=== PATIENT | male | born 1960 | race Two or more races ===

== ENCOUNTER 2019-12-24 18:43 | Outpatient (REF) | payer OTHER, SELFPAY ==
--- NOTE | 2019-12-24 | MR_ITS ---
EXAMINATION: MRI SHOULDER WITHOUT CONTRAST, LEFT CLINICAL INFORMATION: Left shoulder pain, unspecified chronicity. Patient reports left-sided arm weakness, pulling sensation posterior to shoulder, with symptoms for 8 months and no recent injury. COMPARISON: None. TECHNIQUE: MRI scanning is performed using a standard protocol on a high-field strength 1.5 Brooke magnet. FINDINGS: ROTATOR CUFF: There is mild distal supraspinatus, infraspinatus, and subscapularis tendinosis. The teres minor tendon is intact. There is trace edema/fluid in the subacromial-subdeltoid bursa. No muscle atrophy or fatty infiltration. BICEPS: Normal. CORACOACROMIAL ARCH: The undersurface of the acromion is curved with a small lateral subacromial spur. There is mild osteoarthritis of the acromioclavicular joint. LABRUM/CAPSULE: There is a diffuse longitudinal tear extending through the substance of the superior labrum. This may extend diffusely through the posterior labrum but is not as well-defined. There is irregularity of the anterior labrum which may be degenerative. A subtle superimposed tear is not excluded. The capsular structures are unremarkable. GLENOHUMERAL JOINT/MARROW: There are patchy areas of mild cartilage thinning in the glenohumeral joint. IMPRESSION: 1. Mild rotator cuff tendinosis. No evidence of tear. 2. Minor subacromial-subdeltoid bursitis. 3. Small lateral subacromial spur and mild osteoarthritis of the acromioclavicular joint. 4. Diffuse superior labral tear with possible extension through the posterior labrum. Anterior labral degeneration; a superimposed tear is not excluded. 5. Mild glenohumeral arthrosis.
== END 2019-12-24 18:44 | disposition home or self-care (01) ==
LOC: HO.MRI 18:43
PROVIDERS: PCP Internal Medicine; Visit Provider Internal Medicine
DX: M25.512 Pain in left shoulder (principal)
CPT/HCPCS: 73221

== ENCOUNTER 2020-03-02 10:25 | Outpatient (REF) | payer OTHER, SELFPAY ==
--- NOTE | 2020-03-02 10:29 | XR_ITS ---
EXAMINATION: XR SHOULDER, LEFT CLINICAL INFORMATION: Pain COMPARISON: Previous MRI December 2019 TECHNIQUE: Three views of the left shoulder. FINDINGS: Bone alignment is normal. No fracture or dislocation is seen. The joint spaces are normal. Soft tissues are normal. XR/XR shoulder LT min 2V IMPRESSION: Unremarkable exam.
== END 2020-03-02 10:26 | disposition home or self-care (01) ==
LOC: HO.HOSX 10:25
PROVIDERS: PCP Internal Medicine; Visit Provider Orthopaedic Surgery
DX: M75.42 Impingement syndrome of left shoulder (principal)
CPT/HCPCS: 20610; 73030; J1040

== ENCOUNTER 2020-03-10 06:51 | Outpatient (REF) | payer OTHER, SELFPAY ==
[2020-03-10 07:20] LABS: Basophils Absolute Auto 0.1 X10*3/uL (0.0-0.2); Basophils Percent Auto 0.5 % (0-2); Eosinophils Percent Auto 0.1 % (0-4); Hematocrit 44.9 % (42-52); Hemoglobin 15.1 g/dl (14.0-18.0); Imm Gran Abs Auto 0.05 X10*3/uL (0.00-0.03); Imm Gran Pct Auto 0.4 % (0.0-0.4); Lymphocytes Absolute Auto 1.9 X10*3/uL (1.2-4.9); Lymphocytes Percent Auto 14.7 % (20-40); MANUAL DIFF FLAG NO; Mean Corpuscular HGB Conc 33.6 g/dl (31.0-36.0); Mean Corpuscular Hemoglobin 31.7 pg (27.0-33.0); Mean Corpuscular Volume 94.1 fL (80-98); Mean Platelet Volume 8.7 fL (9.4-12.4); Monocytes Absolute Auto 1.1 X10*3/uL (0.1-1.2); Monocytes Percent Auto 8.7 % (2-11); Neutrophils Absolute Auto 9.7 X10*3/uL (2.0-8.3); Neutrophils Percent Auto 75.6 % (45-73); Platelet Count 471 X10*3/uL (160-400); Red Blood Count 4.77 X10*6/uL (4.60-5.80); Red Cell Distribution Width 13.1 % (11.0-16.0); White Blood Count 12.8 X10*3/uL (4.8-10.8)
[2020-03-10 07:34] LABS: Estimated Average Glucose 114 mg/dL; Hemoglobin A1c % 5.6 %
[2020-03-10 07:51] LABS: Alanine Aminotransferase 32 U/L (0-40); Albumin Level 4.5 g/dL (3.5-5.0); Alkaline Phosphatase 84 U/L (39-117); Anion Gap 15 (12-20); Aspartate Amino Transferase 24 U/L (5-37); Bilirubin Total 0.5 mg/dL (0.0-1.0); Blood Urea Nitrogen 19 mg/dL (9-16); Calcium 9.1 mg/dL (8.4-10.2); Carbon Dioxide 22 mmol/L (22-29); Chloride 105 mmol/L (96-108); Cholesterol 178 mg/dL; Estimated Glomerular Filt Rate > 60; Glucose Fasting 101 mg/dL (60-99); HDL Cholesterol 34 mg/dL; LDL Cholesterol Calculated 123 mg/dl; Potassium 4.5 mmol/l (3.3-5.1); Sodium 137 mmol/L (135-145); Total Protein 7.1 g/dL (6.5-8.0); Triglycerides 109 mg/dL
[2020-03-10 08:13] LABS: TSH reflex Free T4 1.91 mIU/mL (0.32-4.0); Vitamin D 25-OH Total 36.9 ng/mL (>30)
== END 2020-03-10 06:52 | disposition home or self-care (01) ==
LOC: HO.LAB 06:51
PROVIDERS: PCP Internal Medicine; Visit Provider Internal Medicine
DX: E78.5 Hyperlipidemia, unspecified (principal); R73.01 Impaired fasting glucose; R79.89 Other specified abnormal findings of blood chemistry; K21.9 Gastro-esophageal reflux disease without esophagitis; J30.9 Allergic rhinitis, unspecified; F17.200 Nicotine dependence, unspecified, uncomplicated; E55.9 Vitamin D deficiency, unspecified; E66.3 Overweight
CPT/HCPCS: 36415; 80053; 80061; 82306; 83036; 84443; 85025

== ENCOUNTER 2020-03-30 08:47 | Outpatient (REF) | payer OTHER, SELFPAY ==
--- NOTE | 2020-03-30 08:49 | CT_ITS ---
EXAMINATION: CT CHEST SCREENING CLINICAL INFORMATION: Nicotine dependence. COMPARISON: CT chest 03/17/2019 TECHNIQUE: Multidetector volumetric CT imaging of the chest is performed without contrast using low-dose technique. Additional 2-D coronal and sagittal reformatted images and axial 3-D maximum intensity projection (MIP) images are generated on the CT workstation. This CT examination was performed using dose optimization techniques as appropriate, variously including the following: *Automated exposure control *Adjustment of mA and/or kV according to patient size (this includes techniques or standardized protocols for targeted exams where dose is matched to indication/reason for exam; i.e. extremities or head) *Use of iterative reconstruction technique DLP: 54 mGy-cm FINDINGS: LUNGS: The lungs are well expanded and clear of acute pneumonic process. There are a few scattered pulmonary nodules. A 3 mm nodule left lower lobe axial image 42/4, 1 mm nodule left lower lobe at the same level image 42/4, 1 mm calcified nodule right lower lobe axial image 42/4, 1 mm calcified nodule left lower lobe axial image 43/4. MEDIASTINUM: The thyroid lobes are symmetric and normal. The central trachea and the bronchi are widely patent. The heart size and the great vessels are normal caliber. No abnormal sized mediastinal or hilar lymph nodes seen. There is no pericardial effusion. Punctate coronary artery calcifications are seen. PLEURA: There is no pleural effusion, thickening or calcification. AXILLA: Shotty lymph nodes are seen in the axilla. UPPER ABDOMEN: The visualized liver, spleen, pancreas, and bilateral adrenal glands are unremarkable. There are no radiopaque gallstones seen. OSSEOUS STRUCTURES: No lytic or sclerotic process seen. CT/CT lung screening IMPRESSION: Small 3 mm and less pulmonary nodules. There are 1 mm calcified nodules in both lower lobes. ASSESSMENT: Lung-RADS category 2: Benign. RECOMMENDATION: Low-dose annual CT chest.
== END 2020-03-30 08:48 | disposition home or self-care (01) ==
LOC: HO.CT 08:47
PROVIDERS: PCP Internal Medicine; Visit Provider Physician Assistant Medical
DX: Z87.891 Personal history of nicotine dependence (principal); G47.33 Obstructive sleep apnea (adult) (pediatric); E55.9 Vitamin D deficiency, unspecified
CPT/HCPCS: 71271

== ENCOUNTER 2020-05-18 06:56 | Outpatient (REF) | payer OTHER, SELFPAY ==
[2020-05-18 07:21] LABS: MANUAL DIFF FLAG NO
[2020-05-18 07:27] LABS: Basophils Absolute Auto 0.1 X10*3/uL (0.0-0.2); Eosinophils Percent Auto 0.2 % (0-4); Hematocrit 43.8 % (42-52); Hemoglobin 14.4 g/dl (14.0-18.0); Imm Gran Abs Auto 0.03 X10*3/uL (0.00-0.03); Imm Gran Pct Auto 0.3 % (0.0-0.4); Lymphocytes Percent Auto 26.5 % (20-40); Mean Corpuscular HGB Conc 32.9 g/dl (31.0-36.0); Mean Corpuscular Hemoglobin 31.5 pg (27.0-33.0); Mean Corpuscular Volume 95.8 fL (80-98); Mean Platelet Volume 8.9 fL (9.4-12.4); Monocytes Absolute Auto 0.8 X10*3/uL (0.1-1.2); Neutrophils Absolute Auto 7.4 X10*3/uL (2.0-8.3); Platelet Count 442 X10*3/uL (160-400); Red Blood Count 4.57 X10*6/uL (4.60-5.80); Red Cell Distribution Width 13.6 % (11.0-16.0); White Blood Count 11.3 X10*3/uL (4.8-10.8)
[2020-05-18 07:57] LABS: Alanine Aminotransferase 25 U/L (0-40); Albumin Level 4.7 g/dL (3.5-5.0); Alkaline Phosphatase 75 U/L (39-117); Anion Gap 14 (12-20); Aspartate Amino Transferase 22 U/L (5-37); Bilirubin Total 0.6 mg/dL (0.0-1.0); Blood Urea Nitrogen 19 mg/dL (9-16); Calcium 9.5 mg/dL (8.4-10.2); Carbon Dioxide 23 mmol/L (22-29); Chloride 107 mmol/L (96-108); Cholesterol 184 mg/dL; Estimated Glomerular Filt Rate > 60; Glucose Fasting 107 mg/dL (60-99); HDL Cholesterol 29 mg/dL; LDL Cholesterol Calculated 124 mg/dl; Potassium 4.7 mmol/L (3.3-5.1); Sodium 139 mmol/L (135-145); Total Protein 7.2 g/dL (6.5-8.0); Triglycerides 155 mg/dL
[2020-05-18 08:01] LABS: Glucose Urine UA NEG (NEG); Leukocyte Esterase Urine NEG (NEG); Nitrite Urine NEG (NEG); Urine Blood NEG (NEG); Urine Ketones NEG (NEG); Urine Protein NEG (NEG-TRACE)
[2020-05-18 08:03] LABS: Appearance Urine CLEAR; Color Urine YELLOW
[2020-05-18 08:11] LABS: TSH reflex Free T4 2.07 uIU/mL (0.32-4.0); Vitamin D 25-OH Total 33.1 ng/mL (>30)
== END 2020-05-18 06:57 | disposition home or self-care (01) ==
LOC: HO.LAB 06:56
PROVIDERS: PCP Internal Medicine; Visit Provider Internal Medicine
DX: E78.2 Mixed hyperlipidemia (principal); R73.01 Impaired fasting glucose; R79.89 Other specified abnormal findings of blood chemistry; E66.3 Overweight; M51.36 Other intervertebral disc degeneration, lumbar region; E55.9 Vitamin D deficiency, unspecified; F17.200 Nicotine dependence, unspecified, uncomplicated; K21.9 Gastro-esophageal reflux disease without esophagitis
CPT/HCPCS: 36415; 80053; 80061; 81003; 82306; 84443; 85025

== ENCOUNTER 2020-08-23 05:58 | Outpatient (REF) | payer OTHER, SELFPAY ==
[2020-08-23 07:48] LABS: MANUAL DIFF FLAG NO
[2020-08-23 07:56] LABS: Basophils Absolute Auto 0.1 X10*3/uL (0.0-0.2); Basophils Percent Auto 0.9 % (0-2); Eosinophils Absolute Auto 0.5 X10*3/uL (0.0-0.4); Eosinophils Percent Auto 5.2 % (0-4); Hematocrit 43.9 % (42-52); Hemoglobin 14.1 g/dl (14.0-18.0); Imm Gran Abs Auto 0.03 X10*3/uL (0.00-0.03); Imm Gran Pct Auto 0.3 % (0.0-0.4); Lymphocytes Absolute Auto 3.3 X10*3/uL (1.2-4.9); Lymphocytes Percent Auto 32.6 % (20-40); Mean Corpuscular HGB Conc 32.1 g/dl (31.0-36.0); Mean Corpuscular Hemoglobin 30.6 pg (27.0-33.0); Mean Corpuscular Volume 95.2 fL (80-98); Mean Platelet Volume 9.4 fL (9.4-12.4); Monocytes Absolute Auto 0.9 X10*3/uL (0.1-1.2); Monocytes Percent Auto 9.2 % (2-11); Neutrophils Absolute Auto 5.2 X10*3/uL (2.0-8.3); Neutrophils Percent Auto 51.8 % (45-73); Platelet Count 453 X10*3/uL (160-400); Red Blood Count 4.61 X10*6/uL (4.60-5.80); Red Cell Distribution Width 13.7 % (11.0-16.0)
[2020-08-23 08:01] LABS: Estimated Average Glucose 117 mg/dL; Hemoglobin A1c % 5.7 %
[2020-08-23 08:19] LABS: Alanine Aminotransferase 24 U/L (0-40); Albumin Level 4.7 g/dL (3.5-5.0); Alkaline Phosphatase 78 U/L (39-117); Anion Gap 16 (12-20); Aspartate Amino Transferase 22 U/L (5-37); Bilirubin Total 0.5 mg/dL (0.0-1.0); Blood Urea Nitrogen 19 mg/dL (9-16); Calcium 9.3 mg/dL (8.4-10.2); Carbon Dioxide 21 mmol/L (22-29); Chloride 109 mmol/L (96-108); Cholesterol 170 mg/dL; Estimated Glomerular Filt Rate > 60; Glucose Fasting 112 mg/dL (60-99); HDL Cholesterol 32 mg/dL; LDL Cholesterol Calculated 114 mg/dl; Sodium 141 mmol/L (135-145); Total Protein 7.2 g/dL (6.5-8.0); Triglycerides 124 mg/dL
[2020-08-23 08:40] LABS: TSH reflex Free T4 1.81 uIU/mL (0.32-4.0); Vitamin D 25-OH Total 37.4 ng/mL (>30)
[2020-08-23 10:17] LABS: Glucose Urine UA NEG (NEG); Leukocyte Esterase Urine NEG (NEG); Nitrite Urine NEG (NEG); Specific Gravity - Urine 1.015 (1.005-1.025); Urine Blood NEG (NEG); Urine Ketones NEG (NEG); Urine Protein NEG (NEG-TRACE)
[2020-08-23 10:28] LABS: Appearance Urine CLEAR; Color Urine YELLOW
== END 2020-08-23 05:59 | disposition home or self-care (01) ==
LOC: HO.LAB 05:58
PROVIDERS: PCP Internal Medicine; Visit Provider Internal Medicine
DX: R73.01 Impaired fasting glucose (principal); E78.2 Mixed hyperlipidemia; R79.89 Other specified abnormal findings of blood chemistry; M51.36 Other intervertebral disc degeneration, lumbar region; F17.200 Nicotine dependence, unspecified, uncomplicated; I10 Essential (primary) hypertension; J30.9 Allergic rhinitis, unspecified; K21.9 Gastro-esophageal reflux disease without esophagitis; E66.3 Overweight; E55.9 Vitamin D deficiency, unspecified
CPT/HCPCS: 36415; 80053; 80061; 81003; 82306; 83036; 84443; 85025

== ENCOUNTER 2020-11-26 06:34 | Outpatient (REF) | payer OTHER, SELFPAY ==
[2020-11-26 07:35] LABS: MANUAL DIFF FLAG NO
[2020-11-26 07:39] LABS: Basophils Absolute Auto 0.1 X10*3/uL (0.0-0.2); Basophils Percent Auto 0.9 % (0-2); Eosinophils Percent Auto 0.1 % (0-4); Hematocrit 43.2 % (42-52); Hemoglobin 14.6 g/dl (14.0-18.0); Imm Gran Abs Auto 0.03 X10*3/uL (0.00-0.03); Imm Gran Pct Auto 0.3 % (0.0-0.4); Lymphocytes Percent Auto 29.4 % (20-40); Mean Corpuscular HGB Conc 33.8 g/dl (31.0-36.0); Mean Corpuscular Hemoglobin 31.7 pg (27.0-33.0); Mean Corpuscular Volume 93.7 fL (80-98); Monocytes Percent Auto 10.2 % (2-11); Neutrophils Absolute Auto 5.9 X10*3/uL (2.0-8.3); Neutrophils Percent Auto 59.1 % (45-73); Platelet Count 438 X10*3/uL (160-400); Red Blood Count 4.61 X10*6/uL (4.60-5.80); Red Cell Distribution Width 13.3 % (11.0-16.0)
[2020-11-26 08:07] LABS: Alanine Aminotransferase 22 U/L (0-40); Albumin Level 4.7 g/dL (3.5-5.0); Alkaline Phosphatase 73 U/L (39-117); Anion Gap 15 (12-20); Aspartate Amino Transferase 19 U/L (5-37); Bilirubin Total 0.7 mg/dL (0.0-1.0); Blood Urea Nitrogen 20 mg/dL (9-16); Calcium 9.6 mg/dL (8.4-10.2); Carbon Dioxide 22 mmol/L (22-29); Chloride 107 mmol/L (96-108); Cholesterol 177 mg/dL; Estimated Glomerular Filt Rate > 60; Glucose Fasting 103 mg/dL (60-99); HDL Cholesterol 32 mg/dL; LDL Cholesterol Calculated 121 mg/dl; Potassium 4.7 mmol/L (3.3-5.1); Sodium 139 mmol/L (135-145); Total Protein 6.9 g/dL (6.5-8.0); Triglycerides 122 mg/dL
[2020-11-26 08:14] LABS: Estimated Average Glucose 114 mg/dL; Hemoglobin A1c % 5.6 %
[2020-11-26 08:28] LABS: TSH reflex Free T4 2.21 uIU/mL (0.32-4.0); Vitamin D 25-OH Total 27.2 ng/mL (>30)
[2020-11-26 08:44] LABS: Appearance Urine CLEAR; Color Urine YELLOW; Glucose Urine UA NEG (NEG); Leukocyte Esterase Urine NEG (NEG); Nitrite Urine NEG (NEG); PH 5.5 (5.0-8.0); Urine Blood NEG (NEG); Urine Ketones NEG (NEG); Urine Protein NEG (NEG-TRACE)
== END 2020-11-26 06:35 | disposition home or self-care (01) ==
LOC: HO.LAB 06:34
PROVIDERS: PCP Internal Medicine; Visit Provider Internal Medicine
DX: E55.9 Vitamin D deficiency, unspecified (principal); I10 Essential (primary) hypertension; E78.00 Pure hypercholesterolemia, unspecified; E66.3 Overweight; E78.2 Mixed hyperlipidemia; R73.01 Impaired fasting glucose; R79.89 Other specified abnormal findings of blood chemistry
CPT/HCPCS: 36415; 80053; 80061; 81003; 82306; 83036; 84443; 85025

== ENCOUNTER 2021-02-22 06:28 | Outpatient (REF) | payer OTHER, SELFPAY ==
[2021-02-22 06:37] LABS: MANUAL DIFF FLAG NO
[2021-02-22 07:22] LABS: Basophils Absolute Auto 0.1 X10*3/uL (0.0-0.2); Basophils Percent Auto 0.8 % (0-2); Eosinophils Percent Auto 0.2 % (0-4); Hematocrit 45.5 % (42.0-52.0); Hemoglobin 14.8 g/dl (14.0-18.0); Imm Gran Abs Auto 0.03 X10*3/uL (0.00-0.03); Imm Gran Pct Auto 0.3 % (0.0-0.4); Lymphocytes Absolute Auto 3.5 X10*3/uL (1.2-4.9); Mean Corpuscular HGB Conc 32.5 g/dl (31.0-36.0); Mean Corpuscular Hemoglobin 30.6 pg (27.0-33.0); Mean Platelet Volume 9.2 fL (9.4-12.4); Monocytes Percent Auto 8.7 % (2-11); Neutrophils Absolute Auto 6.3 x10*3/uL (2.0-8.3); Platelet Count 451 X10*3/uL (160-400); Red Blood Count 4.84 X10*6/uL (4.60-5.80); Red Cell Distribution Width 12.8 % (11.0-16.0); White Blood Count 10.9 X10*3/uL (4.8-10.8)
[2021-02-22 07:29] LABS: Estimated Average Glucose 114 mg/dL; Hemoglobin A1c % 5.6 %
[2021-02-22 07:49] LABS: Alanine Aminotransferase 21 U/L (0-40); Albumin Level 4.7 g/dL (3.5-5.0); Alkaline Phosphatase 75 U/L (39-117); Anion Gap 13 (12-20); Aspartate Amino Transferase 19 U/L (5-37); Bilirubin Total 0.4 mg/dL (0.0-1.0); Blood Urea Nitrogen 20 mg/dL (9-16); Calcium 10.1 mg/dL (8.4-10.2); Carbon Dioxide 25 mmol/L (22-29); Chloride 107 mmol/L (96-108); Cholesterol 198 mg/dL; Estimated Glomerular Filt Rate > 60; Glucose Fasting 91 mg/dL (60-99); HDL Cholesterol 32 mg/dL; LDL Cholesterol Calculated 145 mg/dl; Potassium 4.8 mmol/L (3.3-5.1); Sodium 140 mmol/L (135-145); Total Protein 7.4 g/dL (6.5-8.0); Triglycerides 107 mg/dL
[2021-02-22 08:14] LABS: Vitamin D 25-OH Total 33.6 ng/mL (>30)
== END 2021-02-22 06:29 | disposition home or self-care (01) ==
LOC: HO.LAB 06:28
PROVIDERS: PCP Internal Medicine; Visit Provider Internal Medicine
DX: R73.01 Impaired fasting glucose (principal); E78.00 Pure hypercholesterolemia, unspecified; E55.9 Vitamin D deficiency, unspecified; I10 Essential (primary) hypertension
CPT/HCPCS: 36415; 80053; 80061; 82306; 83036; 84443; 85025

== ENCOUNTER 2021-05-31 06:14 | Outpatient (REF) | payer OTHER, SELFPAY ==
[2021-05-31 07:43] LABS: Appearance Urine CLEAR; Color Urine YELLOW; Glucose Urine UA NEG (NEG); Leukocyte Esterase Urine NEG (NEG); Nitrite Urine NEG (NEG); Specific Gravity - Urine <= 1.005 (1.005-1.025); Urine Blood NEG (NEG); Urine Ketones NEG (NEG); Urine Protein NEG (NEG-TRACE)
[2021-05-31 08:07] LABS: Alanine Aminotransferase 27 U/L (0-40); Albumin Level 4.5 g/dL (3.5-5.0); Alkaline Phosphatase 84 U/L (39-117); Anion Gap 14 (12-20); Aspartate Amino Transferase 19 U/L (5-37); Bilirubin Total 0.6 mg/dL (0.0-1.0); Blood Urea Nitrogen 18 mg/dL (9-16); Calcium 9.5 mg/dL (8.4-10.2); Carbon Dioxide 25 mmol/L (22-29); Chloride 104 mmol/L (96-108); Cholesterol 166 mg/dL; Estimated Glomerular Filt Rate > 60; Glucose Fasting 113 mg/dL (60-99); HDL Cholesterol 28 mg/dL; Potassium 4.7 mmol/L (3.3-5.1); Sodium 138 mmol/L (135-145); Total Protein 6.9 g/dL (6.5-8.0)
[2021-05-31 08:12] LABS: LDL Cholesterol Calculated 101 mg/dl; Triglycerides 185 mg/dL
[2021-05-31 08:15] LABS: Erythrocyte Sedimentation Rate 7 MM/HR (0-15)
[2021-05-31 08:32] LABS: TSH reflex Free T4 2.87 uIU/mL (0.32-4.0)
[2021-06-02 14:26] LABS: Vitamin D 25-OH Total 35.8 ng/mL (>30)
== END 2021-05-31 06:15 | disposition home or self-care (01) ==
LOC: HO.LAB 06:14
PROVIDERS: PCP Internal Medicine; Visit Provider Internal Medicine
DX: M51.36 Other intervertebral disc degeneration, lumbar region (principal); R73.01 Impaired fasting glucose; E78.00 Pure hypercholesterolemia, unspecified; E55.9 Vitamin D deficiency, unspecified
CPT/HCPCS: 36415; 80053; 80061; 81003; 82306; 84443; 85652

== ENCOUNTER → 2021-06-28 11:01 | Outpatient (BNVA) | payer SELFPAY | PROVIDERS: PCP Internal Medicine; Visit Provider Internal Medicine | DX: Z02.1 Encounter for pre-employment examination (principal) ==

== ENCOUNTER 2021-08-17 06:29 | Outpatient (REF) | payer OTHER, SELFPAY ==
[2021-08-17 06:43] LABS: MANUAL DIFF FLAG NO
[2021-08-17 07:29] LABS: Basophils Absolute Auto 0.1 X10*3/uL (0.0-0.2); Basophils Percent Auto 0.8 % (0-2); Eosinophils Percent Auto 0.1 % (0-4); Hematocrit 44.3 % (42.0-52.0); Hemoglobin 14.7 g/dl (14.0-18.0); Imm Gran Abs Auto 0.02 X10*3/uL (0.00-0.03); Imm Gran Pct Auto 0.2 % (0.0-0.4); Lymphocytes Absolute Auto 2.9 X10*3/uL (1.2-4.9); Lymphocytes Percent Auto 27.1 % (20-40); Mean Corpuscular HGB Conc 33.2 g/dl (31.0-36.0); Mean Corpuscular Hemoglobin 31.5 pg (27.0-33.0); Mean Corpuscular Volume 94.9 fL (80.0-98.0); Mean Platelet Volume 9.2 fL (9.4-12.4); Monocytes Absolute Auto 0.9 X10*3/uL (0.1-1.2); Monocytes Percent Auto 8.2 % (2-11); Neutrophils Absolute Auto 6.8 x10*3/uL (2.0-8.3); Neutrophils Percent Auto 63.6 % (45-73); Platelet Count 391 X10*3/uL (160-400); Red Blood Count 4.67 X10*6/uL (4.60-5.80); Red Cell Distribution Width 12.8 % (11.0-16.0); White Blood Count 10.7 X10*3/uL (4.8-10.8)
[2021-08-17 07:57] LABS: Estimated Average Glucose 108 mg/dL; Hemoglobin A1c % 5.4 %
[2021-08-17 08:02] LABS: Alanine Aminotransferase 23 U/L (0-40); Albumin Level 4.5 g/dL (3.5-5.0); Alkaline Phosphatase 90 U/L (39-117); Anion Gap 13 (12-20); Aspartate Amino Transferase 17 U/L (5-37); Bilirubin Total 0.7 mg/dL (0.0-1.0); Blood Urea Nitrogen 15 mg/dL (9-16); Calcium 9.3 mg/dL (8.4-10.2); Carbon Dioxide 25 mmol/L (22-29); Chloride 106 mmol/L (96-108); Cholesterol 165 mg/dL; Estimated Glomerular Filt Rate > 60; Glucose Fasting 96 mg/dL (60-99); HDL Cholesterol 33 mg/dL; LDL Cholesterol Calculated 96 mg/dl; Potassium 4.6 mmol/L (3.3-5.1); Sodium 139 mmol/L (135-145); Total Protein 6.8 g/dL (6.5-8.0); Triglycerides 184 mg/dL
[2021-08-17 08:10] LABS: Appearance Urine CLEAR; Color Urine STRAW; Glucose Urine UA NEG (NEG); Leukocyte Esterase Urine NEG (NEG); Nitrite Urine NEG (NEG); Specific Gravity - Urine <= 1.005 (1.005-1.025); Urine Blood NEG (NEG); Urine Ketones NEG (NEG); Urine Protein NEG (NEG-TRACE)
[2021-08-17 08:26] LABS: TSH reflex Free T4 2.24 uIU/mL (0.32-4.0); Vitamin D 25-OH Total 32.7 ng/mL (>30)
== END 2021-08-17 06:30 | disposition home or self-care (01) ==
LOC: HO.LAB 06:29
PROVIDERS: PCP Internal Medicine; Visit Provider Internal Medicine
DX: E78.00 Pure hypercholesterolemia, unspecified (principal); E55.9 Vitamin D deficiency, unspecified; R73.01 Impaired fasting glucose; I10 Essential (primary) hypertension
CPT/HCPCS: 36415; 80053; 80061; 81003; 82306; 83036; 84443; 85025

== ENCOUNTER 2021-09-02 15:58 | Outpatient (REF) | payer OTHER, SELFPAY ==
--- NOTE | ~2021-09-02 | CT_ITS ---
EXAMINATION: CT CHEST SCREENING CLINICAL INFORMATION: Current smoker. 44 pack year history. COMPARISON: Previous chest CT scans most recent March 2020 TECHNIQUE: Multidetector volumetric CT imaging of the chest is performed without contrast using low dose technique. Additional 2D coronal and sagittal reformatted images and axial 3D maximum intensity projection (MIP) images are generated on the CT workstation. This CT examination was performed using dose optimization techniques as appropriate, variously including the following: *Automated exposure control *Adjustment of mA and/or kV according to patient size (this includes techniques or standardized protocols for targeted exams where dose is matched to indication/reason for exam; i.e. extremities or head) *Use of iterative reconstruction technique DLP: 57 mGy-cm FINDINGS: LUNGS: There is evidence of emphysema. The pulmonary nodules are stable. Largest pulmonary nodule is a a 7 mm left lower lobe nodule axial image 325 series 5. No new pulmonary nodule is seen. No endobronchial or endotracheal lesion. MEDIASTINUM: There is mild coronary artery calcification. The mediastinum is otherwise normal. PLEURA: There is no pleural effusion. No pleural mass or thickening. AXILLA: No lymphadenopathy. UPPER ABDOMEN: Unremarkable OSSEOUS STRUCTURES: Unremarkable. CT/CT lung screening IMPRESSION: Emphysema. Stable pulmonary nodules, largest in the left lower lobe. ASSESSMENT: Lung-RADS category 2: Benign RECOMMENDATION: Annual low-dose chest CT follow-up recommended.
== END 2021-09-02 15:59 | disposition home or self-care (01) ==
LOC: HO.CT 15:58
PROVIDERS: PCP Internal Medicine; Visit Provider Physician Assistant Medical
DX: Z12.2 Encounter for screening for malignant neoplasm of respiratory organs (principal); F17.210 Nicotine dependence, cigarettes, uncomplicated
CPT/HCPCS: 71271

== ENCOUNTER 2021-12-03 07:20 | Outpatient (REF) | payer OTHER, SELFPAY ==
[2021-12-03 08:06] LABS: Estimated Average Glucose 108 mg/dL; Hemoglobin A1c % 5.4 %
[2021-12-03 08:31] LABS: Alanine Aminotransferase 22 U/L (0-40); Albumin Level 4.5 g/dL (3.5-5.0); Alkaline Phosphatase 100 U/L (39-117); Anion Gap 14 (12-20); Aspartate Amino Transferase 15 U/L (5-37); Bilirubin Total 0.6 mg/dL (0.0-1.0); Blood Urea Nitrogen 15 mg/dL (9-16); Calcium 9.2 mg/dL (8.4-10.2); Carbon Dioxide 25 mmol/L (22-29); Chloride 105 mmol/L (96-108); Cholesterol 135 mg/dL; Estimated Glomerular Filt Rate > 60; Glucose Random 101 mg/dL (60-115); HDL Cholesterol 30 mg/dL; LDL Cholesterol Calculated 72 mg/dl; Potassium 4.9 mmol/L (3.3-5.1); Sodium 139 mmol/L (135-145); Total Protein 6.7 g/dL (6.5-8.0); Triglycerides 165 mg/dL
[2021-12-03 08:53] LABS: Prostate Specific Antigen 2.58 ng/mL (<0.05-4.0)
== END 2021-12-03 07:21 | disposition home or self-care (01) ==
LOC: HO.LAB 07:20
PROVIDERS: PCP Internal Medicine; Visit Provider Nurse Practitioner Family
DX: E78.5 Hyperlipidemia, unspecified (principal); R03.0 Elevated blood-pressure reading, without diagnosis of hypertension; R73.01 Impaired fasting glucose; Z12.5 Encounter for screening for malignant neoplasm of prostate
CPT/HCPCS: 36415; 80053; 80061; 83036; 84153

== ENCOUNTER 2022-06-06 05:48 | Outpatient (REF) | payer OTHER, SELFPAY ==
[2022-06-06 06:07] LABS: MANUAL DIFF FLAG NO
[2022-06-06 08:04] LABS: Basophils Absolute Auto 0.1 X10*3/uL (0.0-0.2); Basophils Percent Auto 0.7 % (0-2); Eosinophils Percent Auto 0.1 % (0-4); Hematocrit 42.9 % (42.0-52.0); Hemoglobin 14.3 g/dl (14.0-18.0); Imm Gran Abs Auto 0.04 X10*3/uL (0.00-0.03); Imm Gran Pct Auto 0.4 % (0.0-0.4); Lymphocytes Absolute Auto 2.6 X10*3/uL (1.2-4.9); Lymphocytes Percent Auto 23.3 % (20-40); Mean Corpuscular HGB Conc 33.3 g/dl (31.0-36.0); Mean Corpuscular Hemoglobin 31.6 pg (27.0-33.0); Mean Corpuscular Volume 94.9 fL (80.0-98.0); Mean Platelet Volume 8.8 fL (9.4-12.4); Monocytes Percent Auto 8.9 % (2-11); Neutrophils Absolute Auto 7.5 x10*3/uL (2.0-8.3); Neutrophils Percent Auto 66.6 % (45-73); Platelet Count 330 X10*3/uL (160-400); Red Blood Count 4.52 X10*6/uL (4.60-5.80); Red Cell Distribution Width 13.4 % (11.0-16.0); White Blood Count 11.2 X10*3/uL (4.8-10.8)
[2022-06-06 08:37] LABS: Appearance Urine Cloudy; Color Urine Yellow; Glucose Urine UA Negative (Negative); Leukocyte Esterase Urine Negative (Negative); Nitrite Urine Negative (Negative); PH 6.5 (5.0-9.0); Specific Gravity - Urine <= 1.005 (1.005-1.025); Urine Blood Negative (Negative); Urine Ketones Negative (Negative); Urine Protein Negative (Neg-Trace)
[2022-06-06 09:49] LABS: Alanine Aminotransferase 28 U/L (0-40); Albumin Level 4.3 g/dL (3.5-5.0); Alkaline Phosphatase 78 U/L (39-117); Anion Gap 13 (12-20); Aspartate Amino Transferase 20 U/L (5-37); Bilirubin Total 0.8 mg/dL (0.0-1.0); Blood Urea Nitrogen 18 mg/dL (9-16); Calcium 8.9 mg/dL (8.4-10.2); Carbon Dioxide 26 mmol/L (22-29); Chloride 106 mmol/L (96-108); Cholesterol 169 mg/dL; Estimated Glomerular Filt Rate > 60; Glucose Fasting 100 mg/dL (60-99); HDL Cholesterol 32 mg/dL; LDL Cholesterol Calculated 97 mg/dl; Potassium 4.5 mmol/L (3.3-5.1); Sodium 140 mmol/L (135-145); Total Protein 6.3 g/dL (6.5-8.0); Triglycerides 200 mg/dL; Vitamin D 25-OH Total 17.2 ng/mL (>30)
== END 2022-06-06 05:49 | disposition home or self-care (01) ==
LOC: HO.LAB 05:48
PROVIDERS: PCP Internal Medicine; Visit Provider Internal Medicine
DX: E78.00 Pure hypercholesterolemia, unspecified (principal); E55.9 Vitamin D deficiency, unspecified; I10 Essential (primary) hypertension
CPT/HCPCS: 36415; 80053; 80061; 81003; 82306; 84443; 85025

== ENCOUNTER 2022-08-31 06:04 | Outpatient (REF) | payer OTHER, SELFPAY ==
[2022-08-31 06:22] LABS: MANUAL DIFF FLAG NO
[2022-08-31 07:41] LABS: Basophils Absolute Auto 0.1 X10*3/uL (0.0-0.2); Basophils Percent Auto 0.9 % (0-2); Hematocrit 43.8 % (42.0-52.0); Hemoglobin 14.3 g/dl (14.0-18.0); Imm Gran Abs Auto 0.03 X10*3/uL (0.00-0.03); Imm Gran Pct Auto 0.3 % (0.0-0.4); Lymphocytes Absolute Auto 2.9 X10*3/uL (1.2-4.9); Mean Corpuscular HGB Conc 32.6 g/dl (31.0-36.0); Mean Corpuscular Hemoglobin 31.4 pg (27.0-33.0); Mean Corpuscular Volume 96.1 fL (80.0-98.0); Mean Platelet Volume 8.8 fL (9.4-12.4); Monocytes Percent Auto 9.9 % (2-11); Neutrophils Absolute Auto 6.2 x10*3/uL (2.0-8.3); Neutrophils Percent Auto 60.9 % (45-73); Platelet Count 383 X10*3/uL (160-400); Red Blood Count 4.56 X10*6/uL (4.60-5.80); Red Cell Distribution Width 13.1 % (11.0-16.0); White Blood Count 10.2 X10*3/uL (4.8-10.8)
[2022-08-31 07:44] LABS: Appearance Urine Clear; Color Urine Yellow; Glucose Urine UA Negative (Negative); Leukocyte Esterase Urine Negative (Negative); Nitrite Urine Negative (Negative); PH 5.5 (5.0-9.0); Urine Blood Negative (Negative); Urine Ketones Negative (Negative); Urine Protein Negative (Neg-Trace)
[2022-08-31 08:18] LABS: Alanine Aminotransferase 18 U/L (0-40); Albumin Level 4.2 g/dL (3.5-5.0); Alkaline Phosphatase 96 U/L (39-117); Anion Gap 13 (12-20); Aspartate Amino Transferase 17 U/L (5-37); Bilirubin Total 0.6 mg/dL (0.0-1.0); Blood Urea Nitrogen 19 mg/dL (9-16); Calcium 9.6 mg/dL (8.4-10.2); Carbon Dioxide 25 mmol/L (22-29); Chloride 107 mmol/L (96-108); Cholesterol 143 mg/dL; Estimated Glomerular Filt Rate > 60; Glucose Fasting 106 mg/dL (60-99); HDL Cholesterol 29 mg/dL; LDL Cholesterol Calculated 77 mg/dl; Potassium 4.1 mmol/L (3.3-5.1); Sodium 141 mmol/L (135-145); Total Protein 6.9 g/dL (6.5-8.0); Triglycerides 188 mg/dL
[2022-08-31 08:25] LABS: TSH reflex Free T4 2.06 uIU/mL (0.32-4.0); Vitamin D 25-OH Total 39.9 ng/mL (>30)
== END 2022-08-31 06:05 | disposition home or self-care (01) ==
LOC: HO.LAB 06:04
PROVIDERS: PCP Internal Medicine; Visit Provider Internal Medicine
DX: I10 Essential (primary) hypertension (principal); R30.0 Dysuria; E55.9 Vitamin D deficiency, unspecified; E78.00 Pure hypercholesterolemia, unspecified
CPT/HCPCS: 36415; 80053; 80061; 81003; 82306; 84443; 85025

== ENCOUNTER 2023-03-17 07:06 | Outpatient (REF) | payer OTHER, SELFPAY | END 2023-03-17 07:07 | disposition home or self-care (01) | LOC: HO.LAB 07:06 | PROVIDERS: PCP Internal Medicine; Visit Provider Internal Medicine | DX: E55.9 Vitamin D deficiency, unspecified (principal) | CPT/HCPCS: 36415; 82306 ==

== ENCOUNTER 2023-03-19 14:33 | Outpatient (AMB) | payer OTHER, SELFPAY ==
[2023-03-19 14:36] VITALS: BP 164/98; PULSE 80; O2SAT 95; BMI 33.7
--- NOTE | 2023-03-19 14:36 | MHC.PC.OV ---
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: No Accompanied by: Self / Same As Patient Allergies No Known Allergies [No Known Allergies*] Allergy (Verified 03/19/23 15:55) Medication List - Last Reconciled 03/19/23 by Todd Moscoso MD atorvastatin 10 mg PO BEDTIME 90 days cholecalciferol (vitamin D3) 50 mcg PO DAILY 90 days clonidine HCl 0.1 mg PO BID PRN ibuprofen 800 mg PO Q8H PRN Tobacco use date assessed: 03/19/23 Fall risk assessment: No Falls in past year Last assessed Fall Risk: 03/19/23 Dental Screening Dental Screen Date: 03/19/23 Did you have a dental visit in the last 12 months?: No Did you have a dental problem in the last 6 months where you did not have access to dental care?: No Was dental information given to patient?: No HPI HLP ,IFG, BP, CSM, lumbar spine DDD HPI Details Patient comes in today for his follow up visit States that he feels okay although he has noticed some heaviness and occasional pain over the back of his head and neck recently He denies any headaches or dizziness Denies any chest pains, no increased SOB No nausea/vomiting, no abdominal pain No change in bowel habits noted Still has on and off low back pain - states that he aggravated his left lower back again a couple of months ago but his back symptoms have subsided recently Still has recurrent left shoulder pain, which he states now act up every morning and he has to do his shoulder stretches regularly and often just to get his shoulder symptoms to calm down States that he went for his labs a few days ago but was told that only a vitamin D level was ordered ??? Admits that he has also not yet contacted GI for his colonoscopy - states that they did contact him previously to schedule an appt but he has yet to call them back for this [facility] Medical History Obesity (BMI 30-39.9) Smoker Vitamin D deficiency Obstructive sleep apnea Allergic rhinitis GERD without esophagitis Cervical spondylosis Elevated LFTs Impaired fasting glucose Mixed hyperlipidemia Overweight (BMI 25.0-29.9) Lumbar degenerative disc disease Anxiety Surgical History Hx of colonoscopy (~04/2011) Family History Father Diabetes Mother Hypertension Social History Housing: Apartment Alcohol intake: never Patient Tobacco Use Status: Current everyday Tobacco user Tobacco use type: Cigarette Cigarettes Per Day: 15 e-Cigarette/Vaping Use: Never Used Second Hand Smoke Exposure: Yes service: No Current occupational status: employed 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 1. Little interest or pleasure in doing things: not at all 2. Feeling down, depressed, or hopeless: not at all 3. Trouble falling or staying asleep, or sleeping too much: not at all 4. Feeling tired or having little energy: not at all 5. Poor appetite or overeating: not at all 6. Feeling bad about yourself - or that you are a failure or have let yourself or your family down: not at all 7. Trouble concentrating on things, such as reading the newspaper or watching television: not at all 8. Moving or speaking so slowly that other people could have noticed. Or the opposite - being so fidgety or restless that you have been moving around a lot more than usual: not at all 9. Thoughts that you would be better off or of hurting yourself in some way: not at all Total score: 0 Depression Screening Interpretation: Negative Depression Screening Done: Yes 27446 - PHQ-9 Billing: Yes Source: Developed by Drs. Vincent Banks, Sherin Keller, Neptali Nuno and colleagues, with an educational devin from [employer]. Thrive Questionnaire Date Thrive assessed: 03/19/23 I am a: Patient What is your living situation today?: I have a steady place to live Within the past 12 months, did the food you bought not last and you didn't have the money to get more?: Never true Within the past 12 months, did you worry whether your food would run out before you got money to buy more?: Never true Do you have trouble paying for medicines?: No Do you have trouble getting transportation to medical appointments?: No Do you have trouble paying your heating and electricity bill?: No Do you have trouble taking care of your child, family member or friend?: No Do you have trouble with day-to-day activities such as bathing, preparing meals, shopping, managing finances, etc.?: No Are you currently unemployed and looking for a job?: No Are you interested in more education?: No Please select the resources that you would like help with: None Currently or been in a relationship where the following occur: no concerns reported AUDIT C Alcohol Use Questionnaire (AUDIT-C) 1. How often do you have a drink containing alcohol?: Never 3. How often do you have six or more drinks on one occasion?: Never Total Score: 0 Score Reviewed/Action Taken: Yes QUENTIN-7 AMB Questionnaire QUENTIN-7 Date QUENTIN - 7 assessed: 03/19/23 Feeling nervous, anxious, or on edge: 0 = Not at all Not being able to stop or control worryin = Not at all Worrying too much about different things: 0 = Not at all Trouble relaxin = Not at all Being so restless that it is hard to sit still: 0 = Not at all Becoming easily annoyed or irritable: 0 = Not at all Feeling afraid as if something awful might happen: 0 = Not at all Total QUENTIN-7 score (0-4 normal; 5-9 mild; 10-14 moderate; 15-21 severe): 0 Source: Developed by Drs. Vincent Banks, Sherin Keller, Neptali Nuno and colleagues, with an educational devin from [employer]. QUENTIN-7 Assessment Billing QUENTIN-7 Assessment Tool: QUENTIN-7 Assessment 41316 Review of Systems Const Denies fatigue, Denies fever(s) and Denies headache(s) ENT Denies dysphagia, Denies dizziness, Denies otalgia, Denies headache(s), Reports neck pain, Denies odynophagia and Denies sore throat Card Denies chest pain, Denies palpitations and Reports dyspnea on exertion (occasional, mild) Resp Denies cough and Reports dyspnea on exertion (occasional, mild) GI Denies abdominal pain, Denies constipation, Denies dysphagia, Denies heartburn, Denies diarrhea, Denies nausea, Denies odynophagia and Denies vomiting Denies dysuria, Denies nocturia and Denies urinary frequency Musc Reports back pain (over the lumbar spine - chronic), Reports arthralgias (left shoulder) and Reports neck pain Skin/Breast Denies rash Neuro Denies dizziness and Denies headache(s) Psych Reports anxiety Endo Denies fatigue and Denies palpitations Physical exam (Primary Care) Vital Signs: Last Vital Signs Pulse 80 03/19/23 14:36 BP 164/98 H 03/19/23 14:36 Pulse Ox 95 03/19/23 14:36 Oxygen Delivery Method Room Air 03/19/23 14:36 BMI result Body Mass Index 33.7 Tobacco/Smoking Status: Tobacco use Status Tobacco use date assessed 03/19/23 03/19/23 14:38 Patient Tobacco Use Status Current everyday Tobacco 03/19/23 14:38 Tobacco use type Cigarette 03/19/23 14:38 e-Cigarette/Vaping Use Never Used 03/19/23 14:38 PHQ-9: PHQ-9 Score PHQ-9: Total score 0 03/19/23 15:38 Depression Screening Interpretation: Negative Thrive Assessment: Date of Thrive Assessment Date Thrive assessed 03/19/23 03/19/23 14:38 Currently or been in a relationship where the following occur: no concerns reported Const General: no acute distress and alert HENMT Ears: TM's normal bilaterally and EAC's normal Throat: Yes posterior oropharynx normal and Yes tonsils normal (no TP congestion noted) Neck Neck: Yes no lymphadenopathy Resp Auscultation: clear to auscultation bilaterally, no rales and no wheezes Cardio Rate: regular rate Rhythm: regular rhythm Heart sounds: no murmurs GI Palpation (GI): Soft to palpation and nontender Auscultation: normal bowel sounds Back/Spine/Pelvis Cervical Spine: Cervical spine tenderness Thoracic/Lumbar Spine: lumbar spinal tenderness Extrem General: Yes no clubbing, cyanosis or edema Left upper extremity: shoulder/upper arm Details: tenderness Location: of the A-C joint Results Reviewed Results Reviewed: Laboratory Tests 03/17/23 07:27 25-OH Vitamin D Total 33.4 Assessment and Plan Assessment & Plan (1) Mixed hyperlipidemia: Code(s): E78.2 - Mixed hyperlipidemia Plan: Was not able to get any follow up labs done recently - states that he went to the lab and was supposedly told that only a vitamin D level was ordered for him Looking into the orders, it appears that they were only able to see the vitamin D order and missed all the other labs as it seems that they were cancelled after patient had his Vitamin D level drawn (the vitamin D order also looked like it had its date modified/changed from November 2022 to March 2023) Have advised patient that it is not his fault that his labs were not done (it appears to have been an oversight on the lab's part and they cancelled all the other orders subsequently) so he does not need to go get them done at this time Reinforced low cholesterol diet Continue Atorvastatin 10 mg QD Will recheck his labs and fasting lipids in 3 months for follow up (2) Impaired fasting glucose: Code(s): R73.01 - Impaired fasting glucose Plan: HgbA1c was normal at 5.4% when checked previously Reinforced low calorie diet/exercise as tolerated (3) Elevated LFTs: Code(s): R79.89 - Other specified abnormal findings of blood chemistry Plan: Improved; his LFTs have remained normal on his labs done a few months ago - was most likely related to his weight and cholesterol level Will continue to monitor his LFTs regularly (4) Elevated blood pressure reading in office without diagnosis of hypertension: Code(s): R03.0 - Elevated blood-pressure reading, without diagnosis of hypertension Plan: BP was again high when checked today; they were also high at his previous visit Reinforced low sodium diet He is reminded to try monitoring his BP at home at least every few days - systolic BP should be 120 mm or less to be considered normal Will also have our nurse navigator follow up with him for his BP in a couple of weeks Have discussed that if his BP remains high over the next few weeks, we will most likely have to start him on some Rx for his blood pressure (5) Cervical spondylosis: Comment: Cervical spine x-rays done in early 2019 showed (+) mild multilevel ventral spondylosis at C3-C4, C4-C5 and C6-C7 Code(s): M47.812 - Spondylosis without myelopathy or radiculopathy, cervical region Plan: States that his neck symptoms currently remain adequately controlled on his current Rx - takes Ibuprofen or Aleve PRN (6) Lumbar degenerative disc disease: Code(s): M51.36 - Other intervertebral disc degeneration, lumbar region Plan: Reinforced activity and weight-lifting restrictions Repeat lumbar spine x-rays done a couple of years ago came out okay Continue Ibuprofen 800 mg TID with food PRN and Gabapentin 100 mg Q HS (7) Left rotator cuff tear arthropathy: Comment: MRI of the left shoulder done on 12/24/2019 revealed (+) mild rotator cuff tendinosis (no tear), minor subacromial-subdeltoid bursitis, small lateral subacromial spur and mild osteoarthritis of the acromioclavicular joint, diffuse superior labral tear with possible extension through the posterior labrum; anterior labral degeneration and mild glenohumeral arthrosis Code(s): M75.102 - Unspecified rotator cuff tear or rupture of left shoulder, not specified as traumatic; M12.812 - Other specific arthropathies, not elsewhere classified, left shoulder Plan: States that his left shoulder symptoms have subsided a lot since he received a cortisone injection from orthopedics and with physical therapy last year although his shoulder appears to be acting up again lately Will refer him back to orthopedics for follow up and further management (8) GERD without esophagitis: Code(s): K21.9 - Gastro-esophageal reflux disease without esophagitis Plan: Dietary restrictions reinforced (9) Obstructive sleep apnea: Code(s): G47.33 - Obstructive sleep apnea (adult) (pediatric) Plan: States that he has not been using his CPAP device at all for a while now and feels well without it Advised that this may be part of the reason for his occasional SAUCEDA; patient also is still smoking so that may also be a factor (10) Allergic rhinitis: Code(s): J30.9 - Allergic rhinitis, unspecified Qualifiers: Allergic rhinitis seasonality: unspecified Allergic rhinitis trigger: unspecified Qualified Code(s): J30.9 - Allergic rhinitis, unspecified Plan: Continue Loratadine 10 mg QD PRN (11) Vitamin D deficiency: Code(s): E55.9 - Vitamin D deficiency, unspecified Plan: Continue OTC Vitamin D3 2000 units QD (12) Post traumatic stress disorder (PTSD): Code(s): F43.10 - Post-traumatic stress disorder, unspecified Plan: Follow up with his therapist/psychiatrist as scheduled - is now seeing a therapist regularly and states that his sessions are helping Continue Hydroxyzine 25 mg TID PRN; also used to take Clonidine PRN but has not had to take it in a few months now (13) Smoker: Code(s): F17.200 - Nicotine dependence, unspecified, uncomplicated Plan: Counseled again on smoking cessation Low dose CT lung screening done last year came out normal (14) Obesity (BMI 30-39.9): Code(s): E66.9 - Obesity, unspecified Plan: Reinforced diet/exercise as tolerated/lose weight (15) Colon cancer screening: Code(s): Z12.11 - Encounter for screening for malignant neoplasm of colon Plan: Per patient's insurance ([facility]), he is overdue for repeat colonoscopy Colonoscopy was last done in 04/[address] Coker - (+) tubular adenomas and is due for repeat colonoscopy in 5 years He was referred to GI for repeat colonoscopy at his last visit but he has not yet called to schedule his appt; states that they have already contacted him and he told them that he will call - have advised him to try to get this done FUAD as he is technically at least 7 years overdue now for his repeat colonoscopy Plan Follow up in 3 months Orders: Orders UA CC w/rflx Micro + Cult 3 Months R30.0 - Dysuria Complete Blood Count Auto Diff 3 Months I10 - Essential (primary) hypertension Lipid Panel 3 Months E78.00 - Pure hypercholesterolemia, unspecified Comprehensive [place]. Panel Fast 3 Months E78.00 - Pure hypercholesterolemia, unspecified TSH reflex Free T4 3 Months E78.00 - Pure hypercholesterolemia, unspecified Referrals Orthopedics Referral G89.29 - Other chronic pain, M25.512 - Pain in left shoulder Coding Level of Care Code Est Pt Level 4 (81510) Diagnoses Mixed hyperlipidemia E78.2 Impaired fasting glucose R73.01 Elevated LFTs R79.89 Elevated blood pressure reading in office without diagnosis of hypertension R03.0 Cervical spondylosis M47.812 Lumbar degenerative disc disease M51.36 Left rotator cuff tear arthropathy M75.102; M12.812 GERD without esophagitis K21.9 Obstructive sleep apnea G47.33 Allergic rhinitis, unspecified seasonality, unspecified trigger J30.9 Allergic rhinitis seasonality: unspecified Allergic rhinitis trigger: unspecified Vitamin D deficiency E55.9 Post traumatic stress disorder (PTSD) F43.10 Smoker F17.200 Obesity (BMI 30-39.9) E66.9 Colon cancer screening Z12.11 Additional Codes QUENTIN-7 Assessment Billing - QUENTIN-7 Assessment Tool: QUENTIN-7 Assessment [id number] ([id number])
== END 2023-03-19 15:54 | disposition home or self-care (01) ==
PROVIDERS: PCP Internal Medicine; Visit Provider Internal Medicine
DX: E78.2 Mixed hyperlipidemia (principal); E66.9 Obesity, unspecified; Z68.33 Body mass index [BMI] 33.0-33.9, adult; R73.01 Impaired fasting glucose; R79.89 Other specified abnormal findings of blood chemistry; R03.0 Elevated blood-pressure reading, without diagnosis of hypertension; M47.812 Spondylosis without myelopathy or radiculopathy, cervical region; M51.36 Other intervertebral disc degeneration, lumbar region; M75.102 Unspecified rotator cuff tear or rupture of left shoulder, not specified as traumatic; M12.812 Other specific arthropathies, not elsewhere classified, left shoulder; K21.9 Gastro-esophageal reflux disease without esophagitis; G47.33 Obstructive sleep apnea (adult) (pediatric)
CPT/HCPCS: 99214

== ENCOUNTER 2023-04-12 10:13 | Outpatient (REF) | payer OTHER, SELFPAY ==
--- NOTE | ~2023-04-12 | XR_ITS ---
EXAMINATION: XR SHOULDER, LEFT CLINICAL INFORMATION: Pain. COMPARISON: Radiographs dated 03/02/2020. TECHNIQUE: AP external rotation, Grashey, scapular Y, and axillary views of the left shoulder. FINDINGS: The bones and soft tissues are normal. No fracture. Glenohumeral and acromioclavicular alignment is anatomic with normal joint space. No abnormal soft tissue calcifications. XR/XR shoulder LT min 2V IMPRESSION: Normal left shoulder.
== END 2023-04-12 10:14 | disposition home or self-care (01) ==
LOC: HO.HOSX 10:13
PROVIDERS: Visit Provider Physician Assistant
DX: M77.8 Other enthesopathies, not elsewhere classified (principal)
CPT/HCPCS: 20610; 73030; J1040

== ENCOUNTER 2023-04-12 14:52 | Outpatient (AMB) | payer OTHER, SELFPAY ==
[2023-04-12 15:15] VITALS: BMI 33.6
--- NOTE | 2023-04-12 15:15 | A.OFFVIS_ITS ---
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 Last seen with Dr. Stacy in 2019 for Rotator cuff impingement syndrome of left shoulder and was given an injection that lasted about 5 months. Currently states he his arm/ shoulder feels heavy and painful especially in the mornings. At times he his ROM is painful and stiffness. States he was suppose to do P.T but was not able to attend due to having lower back pain. 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 He was seen by Dr. Stacy in 2019 for his left shoulder where he was given an injection which provided him relief for 5 months. He currently states he has pain and stiffness in his arm and shoulder which is a ggravated with ROM and in the mornings. He also c/o weakness in his left shoulder. He was scheduled for physical therapy but was not able to attend due to his lower back pain. He does not have a history of diabetes. [facility] Medical History Obesity (BMI 30-39.9) Smoker Vitamin D deficiency Obstructive sleep apnea Allergic rhinitis GERD without esophagitis Cervical spondylosis Elevated LFTs Impaired fasting glucose Mixed hyperlipidemia Overweight (BMI 25.0-29.9) Lumbar degenerative disc disease Anxiety Surgical History Hx of colonoscopy (~04/2011) Family History Father Diabetes Mother Hypertension Social History (Updated 04/12/23 @ 15:21 by Shanice Harrison 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 / [employer] Cognitive needs: No Hearing needs: No Vision needs: No Review of Systems Const All systems reviewed & are unremarkable except as noted in HPI and below Physical Exam Vital Signs: BMI result Body Mass Index 33.6 Const General: cooperative, healthy appearing, comfortable, no acute distress, well developed and alert Orientation/consciousness: patient oriented x3 HEENT Head: Yes normal to inspection, Yes normocephalic and Yes atraumatic Eyes General: appearance normal, both eyes and all related structures Resp Effort & Inspection: normal respiratory effort and able to speak in complete sentences Cardio Rate: regular rate Peripheral pulses: Peripheral pulses 2+ throughout GI Palpation (GI): Soft to palpation Skin Lesions: no lesions Rashes: no rashes Neuro General: patient oriented x3 Extrem Other: Left shoulder normal to inspection. Tenderness over the bicipital groove and along the deltoid region of the shoulder. Forward flexion to 175, external rotation to 90, internal rotation to S1. 5/5 RTC strength with mild discomfort. Positive Jaimes. NVI. Office Procedures Joint Injection/Drain Joint Injection/Drain Primary Site: left shoulder Prep: site was prepped using aseptic technique, ethochloride spray was applied and injection warnings given Injected: 80 mg of, DepoMedrol, with 8 mL of, 1% plain lidocaine and in the subcromial space Approach Used: posterolateral Procedure: The patient tolerated the procedure well and there was some relief with the local anesthesia Coding 60033 - Glenohumeral/Tronchanteric Bursa/Intraarticular Procedure code (CPT) selection complete Results Reviewed Results Reviewed: Xrays were obtained in the office today and personally reviewed by me of the left shoulder significant for type 2 acromion Assessment & Plan Assessment & Plan (1) Subacromial tendonitis of left shoulder: Code(s): M77.8 - Other enthesopathies, not elsewhere classified Plan We discussed options today which include steroid injection. They did consent to move forward with the left shoulder injection, which was tolerated well. I recommended rest, ice and elevation and OTC anti-inflammatories PRN for discomfort. If symptoms persist or worsens over the next 6-8 weeks, patient will contact the office to schedule an MRI, otherwise follow-up as needed. Orders: Orders XR shoulder LT min 2V Today M25.512 - Pain in left shoulder Patient Instructions: Scribed for Mandy Seals PA-C, by [place] medical officer psychiatry, on 04/12/2023 at 3:00 PM EST. I, Mandy Seals PA-C, have personally reviewed and agree with the information entered by the scribe. Coding Level of Care Code New Pt Level 3 (98026) Diagnoses Subacromial tendonitis of left shoulder M77.8 CPT Codes Coding - Joint 7: 72686 - Glenohumeral/Tronchanteric Bursa/Intraarticular ([id number])
== END 2023-04-12 15:37 | disposition home or self-care (01) ==
PROVIDERS: PCP Internal Medicine; Visit Provider Physician Assistant
DX: M77.8 Other enthesopathies, not elsewhere classified (principal)
CPT/HCPCS: 20610; 99203

== ENCOUNTER 2023-05-17 09:05 | Outpatient (REF) | payer OTHER, SELFPAY | END 2023-05-17 09:06 | disposition home or self-care (01) | LOC: HO.HOSX 09:05 | PROVIDERS: Visit Provider Physical Medicine & Rehabilitation | DX: Z13.89 Encounter for screening for other disorder (principal) ==

== ENCOUNTER 2023-06-16 07:03 | Outpatient (REF) | payer OTHER, SELFPAY ==
[2023-06-16 07:25] LABS: MANUAL DIFF FLAG NO
[2023-06-16 07:53] LABS: Basophils Absolute Auto 0.1 X10*3/uL (0.0-0.2); Basophils Percent Auto 0.7 % (0-2); Eosinophils Absolute Auto 0.4 X10*3/uL (0.0-0.4); Eosinophils Percent Auto 3.4 % (0-4); Hematocrit 43.9 % (42.0-52.0); Hemoglobin 14.7 g/dl (14.0-18.0); Imm Gran Abs Auto 0.05 X10*3/uL (0.00-0.03); Imm Gran Pct Auto 0.4 % (0.0-0.4); Lymphocytes Percent Auto 26.8 % (20-40); Mean Corpuscular HGB Conc 33.5 g/dl (31.0-36.0); Mean Corpuscular Hemoglobin 31.5 pg (27.0-33.0); Mean Platelet Volume 8.7 fL (9.4-12.4); Monocytes Absolute Auto 0.9 X10*3/uL (0.1-1.2); Monocytes Percent Auto 7.8 % (2-11); Neutrophils Absolute Auto 6.9 x10*3/uL (2.0-8.3); Neutrophils Percent Auto 60.9 % (45-73); Platelet Count 373 X10*3/uL (160-400); Red Blood Count 4.67 X10*6/uL (4.60-5.80); Red Cell Distribution Width 13.2 % (11.0-16.0); White Blood Count 11.3 X10*3/uL (4.8-10.8)
[2023-06-16 08:48] LABS: Alanine Aminotransferase 26 U/L (0-40); Albumin Level 4.5 g/dL (3.5-5.0); Alkaline Phosphatase 83 U/L (39-117); Anion Gap 12 (12-20); Aspartate Amino Transferase 18 U/L (5-37); Bilirubin Total 0.6 mg/dL (0.0-1.0); Blood Urea Nitrogen 17 mg/dL (9-16); Calcium 9.4 mg/dL (8.4-10.2); Carbon Dioxide 24 mmol/L (22-29); Chloride 107 mmol/L (96-108); Cholesterol 178 mg/dL (<200); Estimated Glomerular Filt Rate > 60; Glucose Fasting 104 mg/dL (60-99); HDL Cholesterol 33 mg/dL (>40); LDL Cholesterol Calculated 104 mg/dL (<100); Potassium 4.3 mmol/L (3.3-5.1); Sodium 139 mmol/L (135-145); Total Protein 7.1 g/dL (6.5-8.0); Triglycerides 207 mg/dL (<150)
[2023-06-16 09:06] LABS: TSH reflex Free T4 1.29 uIU/mL (0.32-4.0)
[2023-06-16 10:13] LABS: Appearance Urine Clear; Color Urine Yellow; Glucose Urine UA Negative (Negative); Leukocyte Esterase Urine Negative (Negative); Nitrite Urine Negative (Negative); PH 6.5 (5.0-9.0); Specific Gravity - Urine <= 1.005 (1.005-1.025); Urine Blood Negative (Negative); Urine Ketones Negative (Negative); Urine Protein Negative (Neg-Trace)
== END 2023-06-16 07:04 | disposition home or self-care (01) ==
LOC: HO.LAB 07:03
PROVIDERS: PCP Internal Medicine; Visit Provider Internal Medicine
DX: R30.0 Dysuria (principal); I10 Essential (primary) hypertension; E78.00 Pure hypercholesterolemia, unspecified
CPT/HCPCS: 36415; 80053; 80061; 81003; 84443; 85025

== ENCOUNTER 2023-06-18 15:50 | Outpatient (AMB) | payer OTHER, SELFPAY ==
--- NOTE | 2023-06-18 15:50 | A.OFFPC_ITS ---
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 Accompanied by: Self / Same As Patient Allergies No Known Allergies [No Known Allergies*] Allergy (Verified 06/18/23 16:51) Medication List - Last Reconciled 06/18/23 by Todd Moscoso MD atorvastatin 10 mg PO BEDTIME 90 days cholecalciferol (vitamin D3) 50 mcg PO DAILY 90 days ibuprofen 800 mg PO Q8H PRN lisinopril 5 mg PO DAILY 30 days Tobacco use date assessed: 03/19/23 Fall risk assessment: No Falls in past year Last assessed Fall Risk: 06/18/23 Dental Screening Dental Screen Date: 03/19/23 HPI 3mth f/u HPI Details Patient comes in today for his follow up visit States that he has been under a lot of stress lately His was just diagnosed with breast cancer (stage 1) and is currently undergoing further workups before starting treatment and this is adding more stress for him States that he overall feels okay He denies any headaches or dizziness Denies any chest pains, no increased SOB No nausea/vomiting, no abdominal pain No change in bowel habits noted Needs his Vitamin D Rx refilled Had his follow up labs done a couple of days ago - to discuss his results [facility] Medical History (Updated 06/18/23 @ 17:07 by Todd Moscoso MD) Essential hypertension Obesity (BMI 30-39.9) Smoker Vitamin D deficiency Obstructive sleep apnea Allergic rhinitis GERD without esophagitis Cervical spondylosis Elevated LFTs Impaired fasting glucose Mixed hyperlipidemia Overweight (BMI 25.0-29.9) Lumbar degenerative disc disease Anxiety Surgical History Hx of colonoscopy (~04/2011) Family History Father Diabetes Mother Hypertension Social History Housing: Apartment Alcohol intake: never Patient Tobacco Use Status: Current everyday Tobacco user Tobacco use type: Cigarette Cigarettes Per Day: 15 e-Cigarette/Vaping Use: Never Used Second Hand Smoke Exposure: Yes service: No Current occupational status: employed Current occupation: [employer] / rt [employer] Cognitive needs: No Hearing needs: No Vision needs: No Questionnaire PHQ-9 Over the last 2 weeks, how often have you been bothered by any of the following problems? Depression Screening Interpretation: Negative Depression Screening Done: Yes Source: Developed by Drs. Vincent Banks, Neptali Fitzgerald and colleagues, with an educational devin from [employer]. Thrive Questionnaire Date Thrive assessed: 03/19/23 Currently or been in a relationship where the following occur: no concerns reported THRIVE Score: 0 QUENTIN-7 AMB Questionnaire QUENTIN-7 Date QUENTIN - 7 assessed: 03/19/23 Source: Developed by Drs. Vincent Banks, Sherin Keller, Neptali Nuno and colleagues, with an educational devin from [employer]. Review of Systems Const Denies fatigue, Denies fever(s) and Denies headache(s) ENT Denies dysphagia, Denies dizziness, Denies otalgia, Denies headache(s), Reports neck pain, Denies odynophagia and Denies sore throat Card Denies chest pain, Denies palpitations and Reports dyspnea on exertion (occasional, mild) Resp Denies cough and Reports dyspnea on exertion (occasional, mild) GI Denies abdominal pain, Denies constipation, Denies dysphagia, Denies heartburn, Denies diarrhea, Denies nausea, Denies odynophagia and Denies vomiting Denies dysuria, Denies nocturia and Denies urinary frequency Musc Reports back pain (over the lumbar spine - chronic), Reports arthralgias (left shoulder (mild)-feels slightly better with recent cortisone injection) and Reports neck pain Skin/Breast Denies rash Neuro Denies dizziness and Denies headache(s) Psych Reports anxiety Endo Denies fatigue and Denies palpitations Physical exam (Primary Care) Vital Signs: Last Vital Signs Pulse 86 06/18/23 16:03 Resp 16 06/18/23 16:03 BP 178/100 H 06/18/23 16:03 Pulse Ox 97 06/18/23 16:03 Oxygen Delivery Method Room Air 04/08/24 16:03 BMI result Body Mass Index 33.8 Tobacco/Smoking Status: Tobacco use Status Tobacco use date assessed 03/19/23 06/18/23 15:51 Patient Tobacco Use Status Current everyday Tobacco 06/18/23 15:51 Tobacco use type Cigarette 06/18/23 15:51 e-Cigarette/Vaping Use Never Used 06/18/23 15:51 Depression Screening Interpretation: Negative Thrive Assessment: Date of Thrive Assessment Date Thrive assessed 03/19/23 06/18/23 15:51 Currently or been in a relationship where the following occur: no concerns reported Const General: no acute distress and alert HENMT Ears: TM's normal bilaterally and EAC's normal Throat: Yes posterior oropharynx normal and Yes tonsils normal (no TP congestion noted) Neck Neck: Yes no lymphadenopathy Resp Auscultation: clear to auscultation bilaterally, no rales and no wheezes Cardio Rate: regular rate Rhythm: regular rhythm Heart sounds: no murmurs GI Palpation (GI): Soft to palpation and nontender Auscultation: normal bowel sounds Back/Spine/Pelvis Cervical Spine: Cervical spine tenderness Thoracic/Lumbar Spine: lumbar spinal tenderness Extrem General: Yes no clubbing, cyanosis or edema Left upper extremity: shoulder/upper arm Details: tenderness Location: of the A- C joint (mild) and normal ROM Results Reviewed Results Reviewed: Laboratory Tests 06/16/23 06/16/23 07:07 07:23 WBC 11.3 H Hgb 14.7 Hct 43.9 Plt Count 373 Sodium 139 Potassium 4.3 Creatinine 0.84 Estimated GFR > 60 Fasting Glucose 104 H Calcium 9.4 AST 18 ALT 26 Triglycerides 207 H Cholesterol 178 LDL Cholesterol, Calc 104 H HDL Cholesterol 33 L TSH 1.29 Ur Specific [place] <= 1.005 Urine Protein Negative Urine Glucose (UA) Negative Urine Blood Negative Urine Nitrite Negative Ur Leukocyte Esterase Negative Assessment and Plan Assessment & Plan (1) Mixed hyperlipidemia: Code(s): E78.2 - Mixed hyperlipidemia Plan: Results of his labs done a couple of days ago reviewed and discussed with patient - advised that his cholesterol numbers have increased significantly from previous Reinforced low cholesterol diet Will increase his Atorvastatin now to 20 mg QD Will recheck his labs and fasting lipids in 3 months for follow up (2) Essential hypertension: Code(s): I10 - Essential (primary) hypertension Plan: Reinforced low sodium diet - goal is systolic BP of 120 mm or less He has been on Lisinopril 5 mg QD for a few weeks now and will go ahead and increase it to 10 mg QD today He is reminded to continue monitoring his BP regularly and we will again have one of our nurse nsavigator follow up with him in a couple of weeks or so (3) Impaired fasting glucose: Code(s): R73.01 - Impaired fasting glucose Plan: HgbA1c was normal at 5.4% when checked previously Reinforced low calorie diet/exercise as tolerated (4) Elevated LFTs: Code(s): R79.89 - Other specified abnormal findings of blood chemistry Plan: Improved; his LFTs have remained normal on his labs done a couple of days ago and they were most likely related to his weight and cholesterol level Will continue to monitor his LFTs regularly (5) Cervical spondylosis: Comment: Cervical spine x-rays done in early 2019 showed (+) mild multilevel ventral spondylosis at C3-C4, C4-C5 and C6-C7 Code(s): M47.812 - Spondylosis without myelopathy or radiculopathy, cervical region Plan: States that his neck symptoms currently remain adequately controlled on his current Rx - takes Ibuprofen or Aleve PRN (6) Lumbar degenerative disc disease: Code(s): M51.36 - Other intervertebral disc degeneration, lumbar region Plan: Reinforced activity and weight-lifting restrictions Repeat lumbar spine x-rays done a couple of years ago came out okay Continue Ibuprofen 800 mg TID with food PRN and Gabapentin 100 mg Q HS (7) Left rotator cuff tear arthropathy: Comment: MRI of the left shoulder done on 12/24/2019 revealed (+) mild rotator cuff tendinosis (no tear), minor subacromial-subdeltoid bursitis, small lateral subacromial spur and mild osteoarthritis of the acromioclavicular joint, diffuse superior labral tear with possible extension through the posterior labrum; anterior labral degeneration and mild glenohumeral arthrosis Code(s): M75.102 - Unspecified rotator cuff tear or rupture of left shoulder, not specified as traumatic; M12.812 - Other specific arthropathies, not elsewhere classified, left shoulder Plan: States that his left shoulder symptoms have subsided a lot since he received a cortisone injection from orthopedics and with physical therapy last year Follow up with orthopedics as scheduled (8) GERD without esophagitis: Code(s): K21.9 - Gastro-esophageal reflux disease without esophagitis Plan: Dietary restrictions reinforced (9) Obstructive sleep apnea: Code(s): G47.33 - Obstructive sleep apnea (adult) (pediatric) Plan: States that he has not been using his CPAP device at all for a while now and feels well without it Advised that this may be part of the reason for his occasional SAUCEDA; patient also is still smoking so that may also be a factor (10) Allergic rhinitis: Code(s): J30.9 - Allergic rhinitis, unspecified Qualifiers: Allergic rhinitis trigger: unspecified Allergic rhinitis seasonality: unspecified Qualified Code(s): J30.9 - Allergic rhinitis, unspecified Plan: Continue Loratadine 10 mg QD PRN (11) Vitamin D deficiency: Code(s): E55.9 - Vitamin D deficiency, unspecified Plan: Continue Vitamin D3 2000 units QD - Rx refilled (12) Post traumatic stress disorder (PTSD): Code(s): F43.10 - Post-traumatic stress disorder, unspecified Plan: Follow up with his therapist/psychiatrist as scheduled - is now seeing a therapist regularly and states that his sessions are helping Continue Hydroxyzine 25 mg TID PRN; also used to take Clonidine PRN but has not had to take it in a few months now (13) Smoker: Code(s): F17.200 - Nicotine dependence, unspecified, uncomplicated Plan: Counseled again on smoking cessation Low dose CT lung screening done last year came out normal (14) Obesity (BMI 30-39.9): Code(s): E66.9 - Obesity, unspecified Plan: Reinforced diet/exercise as tolerated/lose weight Plan Follow up in 3 months Orders: Orders Complete Blood Count Auto Diff 3 Months D64.9 - Anemia, unspecified Lipid Panel 3 Months E78.00 - Pure hypercholesterolemia, unspecified TSH reflex Free T4 3 Months E78.00 - Pure hypercholesterolemia, unspecified Vitamin D 25-OH Total 3 Months E55.9 - Vitamin D deficiency, unspecified Comprehensive [place]. Panel Fast 3 Months E78.00 - Pure hypercholesterolemia, unspecified UA CC w/rflx Micro + Cult 3 Months R30.0 - Dysuria Medications: Changed From lisinopril 5 mg PO DAILY 30 days 30 tabs 3RF To lisinopril 10 mg PO DAILY 30 days 30 tabs 3RF From atorvastatin 10 mg PO BEDTIME 90 days 90 tabs 1RF To atorvastatin 20 mg PO BEDTIME 90 days 90 tabs 1RF Refilled cholecalciferol (vitamin D3) 50 mcg PO DAILY 90 days 90 caps 3RF Coding Level of Care Code Est Pt Level 4 (26947) Diagnoses Mixed hyperlipidemia E78.2 Essential hypertension I10 Impaired fasting glucose R73.01 Elevated LFTs R79.89 Cervical spondylosis M47.812 Lumbar degenerative disc disease M51.36 Left rotator cuff tear arthropathy M75.102; M12.812 GERD without esophagitis K21.9 Obstructive sleep apnea G47.33 Allergic rhinitis, unspecified seasonality, unspecified trigger J30.9 Allergic rhinitis trigger: unspecified Allergic rhinitis seasonality: unspecified Vitamin D deficiency E55.9 Post traumatic stress disorder (PTSD) F43.10 Smoker F17.200 Obesity (BMI 30-39.9) E66.9
[2023-06-18 16:03] VITALS: BP 178/100; PULSE 86; RESP 16; O2SAT 97; BMI 33.8
[2023-06-18 16:53] VITALS: BP 160/110
== END 2023-06-18 17:00 | disposition home or self-care (01) ==
PROVIDERS: PCP Internal Medicine; Visit Provider Internal Medicine
DX: E78.2 Mixed hyperlipidemia (principal); I10 Essential (primary) hypertension; E66.9 Obesity, unspecified; Z68.33 Body mass index [BMI] 33.0-33.9, adult; R73.01 Impaired fasting glucose; R79.89 Other specified abnormal findings of blood chemistry; M47.812 Spondylosis without myelopathy or radiculopathy, cervical region; M51.36 Other intervertebral disc degeneration, lumbar region; M75.102 Unspecified rotator cuff tear or rupture of left shoulder, not specified as traumatic; M12.812 Other specific arthropathies, not elsewhere classified, left shoulder; K21.9 Gastro-esophageal reflux disease without esophagitis; G47.33 Obstructive sleep apnea (adult) (pediatric)
CPT/HCPCS: 99214

== ENCOUNTER → 2023-06-20 10:46 | Outpatient (BNVA) | payer SELFPAY | PROVIDERS: PCP Internal Medicine; Visit Provider Physician Assistant | DX: Z02.79 Encounter for issue of other medical certificate (principal) ==

== ENCOUNTER 2023-09-19 07:15 | Outpatient (REF) | payer OTHER, SELFPAY ==
[2023-09-19 07:32] LABS: MANUAL DIFF FLAG NO
[2023-09-19 07:59] LABS: Basophils Absolute Auto 0.1 X10*3/uL (0.0-0.2); Basophils Percent Auto 0.8 % (0-2); Eosinophils Percent Auto 0.3 % (0-4); Hematocrit 43.6 % (42.0-52.0); Hemoglobin 14.6 g/dl (14.0-18.0); Imm Gran Abs Auto 0.03 X10*3/uL (0.00-0.03); Imm Gran Pct Auto 0.3 % (0.0-0.4); Lymphocytes Absolute Auto 3.4 X10*3/uL (1.2-4.9); Lymphocytes Percent Auto 31.9 % (20-40); Mean Corpuscular HGB Conc 33.5 g/dl (31.0-36.0); Mean Corpuscular Volume 95.6 fL (80.0-98.0); Mean Platelet Volume 8.5 fL (9.4-12.4); Monocytes Absolute Auto 0.9 X10*3/uL (0.1-1.2); Neutrophils Absolute Auto 6.3 x10*3/uL (2.0-8.3); Neutrophils Percent Auto 58.7 % (45-73); Platelet Count 359 X10*3/uL (160-400); Red Blood Count 4.56 X10*6/uL (4.60-5.80); Red Cell Distribution Width 12.8 % (11.0-16.0); White Blood Count 10.8 X10*3/uL (4.8-10.8)
[2023-09-19 07:59] LABS: Appearance Urine Clear; Color Urine Yellow; Glucose Urine UA Negative (Negative); Leukocyte Esterase Urine Negative (Negative); Nitrite Urine Negative (Negative); Specific Gravity - Urine <= 1.005 (1.005-1.025); Urine Blood Negative (Negative); Urine Ketones Negative (Negative); Urine Protein Negative (Neg-Trace)
[2023-09-19 08:31] LABS: Alanine Aminotransferase 18 U/L (0-40); Albumin Level 4.4 g/dL (3.5-5.0); Alkaline Phosphatase 82 U/L (39-117); Anion Gap 11 (12-20); Aspartate Amino Transferase 16 U/L (5-37); Bilirubin Total 0.7 mg/dL (0.0-1.0); Blood Urea Nitrogen 17 mg/dL (9-16); Calcium 9.4 mg/dL (8.4-10.2); Carbon Dioxide 28 mmol/L (22-29); Chloride 106 mmol/L (96-108); Cholesterol 152 mg/dL (<200); Estimated Glomerular Filt Rate > 60; Glucose Fasting 112 mg/dL (60-99); HDL Cholesterol 30 mg/dL (>40); LDL Cholesterol Calculated 79 mg/dL (<100); Potassium 4.3 mmol/L (3.3-5.1); Sodium 141 mmol/L (135-145); Total Protein 6.8 g/dL (6.5-8.0); Triglycerides 215 mg/dL (<150)
[2023-09-19 08:34] LABS: TSH reflex Free T4 2.51 uIU/mL (0.32-4.0); Vitamin D 25-OH Total 32.8 ng/mL (>30)
== END 2023-09-19 07:16 | disposition home or self-care (01) ==
LOC: HO.LAB 07:15
PROVIDERS: PCP Internal Medicine; Visit Provider Internal Medicine
DX: D64.9 Anemia, unspecified (principal); R30.0 Dysuria; E78.00 Pure hypercholesterolemia, unspecified; E55.9 Vitamin D deficiency, unspecified
CPT/HCPCS: 36415; 80053; 80061; 81003; 82306; 84443; 85025

== ENCOUNTER 2023-09-21 15:28 | Outpatient (AMB) | payer OTHER, SELFPAY ==
--- NOTE | 2023-09-21 15:48 | A.OFFPC_ITS ---
Vital Signs 09/21/23 15:54 Height 5 ft 4 in Weight 193 lb 0.2 oz BMI 33.1 BP 140/80 H Blood Pressure Location Lt brachial Position Sitting Pulse 87 Pulse Source Pulse Oximeter Pulse Oximetry (%) 96 Oxygen Delivery Method Room Air Intake Visit Reasons: follow up [employer] Required: No Allergies No Known Allergies [No Known Allergies*] Allergy (Verified 09/21/23 16:42) Medication List - Last Reconciled 09/21/23 by Todd Moscoso MD atorvastatin 20 mg PO BEDTIME 90 days cholecalciferol (vitamin D3) 50 mcg PO DAILY 90 days ibuprofen 800 mg PO Q8H PRN lisinopril 10 mg PO DAILY 30 days Tobacco use date assessed: 03/19/23 Dental Screening Dental Screen Date: 03/19/23 HPI follow up HPI Details Patient comes in today for his follow-up visit States that he has been experiencing increasing sharp/stabbing pain over his left lower back for the past 4 days (since Sunday this week) Reports that the pain in his left lower back would often radiate down his left lower extremity and make it difficult for him to continue walking States that the back of his left thigh also feels numb often Relates that he's had problems with his lower back in the past but they have never gotten this bad and patient denies any recent injury or trauma to his lower back He denies any headaches or dizziness Denies any chest pains, no increased shortness of breath No nausea / vomiting, no abdominal pain No change in bowel habits noted He had his follow-up labs done a couple of days ago - to discuss his results [facility] Medical History (Updated 09/21/23 @ 16:46 by Todd Moscoso MD) Essential hypertension Obesity (BMI 30-39.9) Smoker Vitamin D deficiency Obstructive sleep apnea Allergic rhinitis GERD without esophagitis Cervical spondylosis Elevated LFTs Impaired fasting glucose Mixed hyperlipidemia Overweight (BMI 25.0-29.9) Lumbar degenerative disc disease Anxiety Surgical History Hx of colonoscopy (~04/2011) Family History Father Diabetes Mother Hypertension Social History Housing: Apartment Alcohol intake: never Patient Tobacco Use Status: Current everyday Tobacco user Tobacco use type: Cigarette Cigarettes Per Day: 15 e-Cigarette/Vaping Use: Never Used Second Hand Smoke Exposure: Yes service: No Current occupational status: employed 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 Vincent Banks, Sherin Keller, Neptali Nuno and colleagues, with an educational devin from [employer]. Review of Systems Const Denies chills, Denies fatigue, Denies fever(s) and Denies headache(s) ENT Denies dysphagia, Denies dizziness, Denies otalgia, Denies headache(s), Reports neck pain, Denies odynophagia and Denies sore throat Card Denies chest pain, Denies palpitations and Reports dyspnea on exertion (occasional, mild) Resp Denies cough and Reports dyspnea on exertion (occasional, mild) GI Denies abdominal pain, Denies constipation, Denies dysphagia, Denies heartburn, Denies diarrhea, Denies nausea, Denies odynophagia and Denies vomiting Denies dysuria, Denies nocturia and Denies urinary frequency Musc Reports back pain (over the lumbar spine - chronic; increased on the left side recently ), Reports arthralgias (left shoulder (mild)-feels slightly better with recent cortisone injection), Reports neck pain, Reports numbness (over the back of the left thigh) and Reports radiating pain into limb (into the left lower extremity - see HPI) Skin/Breast Denies rash Neuro Denies dizziness, Denies headache(s) and Reports numbness (over the back of the left thigh) Psych Reports anxiety Endo Denies fatigue and Denies palpitations Physical exam (Primary Care) Vital Signs: Last Vital Signs Pulse 87 09/21/23 15:54 BP 140/80 H 09/21/23 15:54 Pulse Ox 96 09/21/23 15:54 Oxygen Delivery Method Room Air 09/21/23 15:54 BMI result Body Mass Index 33.1 Tobacco/Smoking Status: Tobacco use Status Tobacco use date assessed 03/19/23 09/21/23 15:50 Patient Tobacco Use Status Current everyday Tobacco 09/21/23 15:50 Tobacco use type Cigarette 09/21/23 15:50 e-Cigarette/Vaping Use Never Used 09/21/23 15:50 Thrive Assessment: Date of Thrive Assessment Date Thrive assessed 03/19/23 09/21/23 15:50 Const General: no acute distress and alert HENMT Ears: TM's normal bilaterally and EAC's normal Throat: Yes posterior oropharynx normal and Yes tonsils normal (no TP congestion noted) Neck Neck: Yes no lymphadenopathy and Yes tender Thyroid: Thyroid normal Resp Auscultation: clear to auscultation bilaterally, no rales and no wheezes Cardio Rate: regular rate Rhythm: regular rhythm Heart sounds: no murmurs GI Palpation (GI): Soft to palpation and nontender Auscultation: normal bowel sounds General: Yes no CVA tenderness Back/Spine/Pelvis Back: no CVA tenderness Cervical Spine: Cervical spine tenderness Thoracic/Lumbar Spine: paraspinal muscle tenderness on the left in the mid lumbar and in the lower lumbar and lumbar spinal tenderness Skin Rashes: no rashes Extrem General: Yes no clubbing, cyanosis or edema Left upper extremity: shoulder/upper arm Details: tenderness Location: of the A- C joint (mild) and normal ROM Results Reviewed Results Reviewed: Laboratory Tests 09/19/23 09/19/23 07:26 07:28 WBC 10.8 Hgb 14.6 Hct 43.6 Plt Count 359 Sodium 141 Potassium 4.3 Creatinine 0.93 Estimated GFR > 60 Fasting Glucose 112 H Calcium 9.4 AST 16 ALT 18 Triglycerides 215 H Cholesterol 152 LDL Cholesterol, Calc 79 HDL Cholesterol 30 L 25-OH Vitamin D Total 32.8 TSH 2.51 Ur Specific [place] <= 1.005 Urine Protein Negative Urine Glucose (UA) Negative Urine Blood Negative Urine Nitrite Negative Ur Leukocyte Esterase Negative Assessment and Plan Assessment & Plan (1) Mixed hyperlipidemia: Code(s): E78.2 - Mixed hyperlipidemia Plan: Results of his labs done a couple of days ago reviewed and discussed with patient - advised that his cholesterol numbers have improved from previous Reinforced low cholesterol diet Continue Atorvastatin 20 mg QD Will recheck his labs and fasting lipids in 3 months for follow up (2) Essential hypertension: Code(s): I10 - Essential (primary) hypertension Plan: Reinforced low sodium diet - goal is systolic BP of 120 mm or less Continue Lisinopril 10 mg QD He is reminded to continue monitoring his BP regularly (3) Impaired fasting glucose: Code(s): R73.01 - Impaired fasting glucose Plan: HgbA1c was normal at 5.4% when checked previously Reinforced low calorie diet/exercise as tolerated (4) Elevated LFTs: Code(s): R79.89 - Other specified abnormal findings of blood chemistry Plan: Improved; his LFTs have remained normal on his labs done a couple of days ago - were most likely related to his weight and cholesterol level Will continue to monitor his LFTs regularly (5) Cervical spondylosis: Comment: Cervical spine x-rays done in early 2019 showed (+) mild multilevel ventral spondylosis at C3-C4, C4-C5 and C6-C7 Code(s): M47.812 - Spondylosis without myelopathy or radiculopathy, cervical region Plan: States that his neck symptoms currently remain adequately controlled on his current Rx - takes Ibuprofen or Aleve PRN (6) Lumbar degenerative disc disease: Code(s): M51.36 - Other intervertebral disc degeneration, lumbar region Plan: Reinforced activity and weight-lifting restrictions Repeat lumbar spine x-rays done a couple of years ago came out okay but with his recent symptoms (see HPI), will send him for a lumbar spine MRI for further evaluation Continue Ibuprofen 800 mg TID with food PRN and Gabapentin 100 mg Q HS (7) Left lumbar radiculopathy: Code(s): M54.16 - Radiculopathy, lumbar region Plan: Will send patient for an MRI of the lumbar spine for further evaluation (8) Left rotator cuff tear arthropathy: Comment: MRI of the left shoulder done on 12/24/2019 revealed (+) mild rotator cuff tendinosis (no tear), minor subacromial-subdeltoid bursitis, small lateral subacromial spur and mild osteoarthritis of the acromioclavicular joint, diffuse superior labral tear with possible extension through the posterior labrum; anterior labral degeneration and mild glenohumeral arthrosis Code(s): M75.102 - Unspecified rotator cuff tear or rupture of left shoulder, not specified as traumatic; M12.812 - Other specific arthropathies, not elsewhere classified, left shoulder Plan: States that his left shoulder symptoms have subsided a lot since he received a cortisone injection from orthopedics and with physical therapy last year Follow up with orthopedics as scheduled (9) GERD without esophagitis: Code(s): K21.9 - Gastro-esophageal reflux disease without esophagitis Plan: Dietary restrictions reinforced (10) Obstructive sleep apnea: Code(s): G47.33 - Obstructive sleep apnea (adult) (pediatric) Plan: States that he has not been using his CPAP device at all for a while now and feels well without it Advised that this may be part of the reason for his occasional SAUCEDA; patient also is still smoking so that may also be a factor (11) Allergic rhinitis: Code(s): J30.9 - Allergic rhinitis, unspecified Qualifiers: Allergic rhinitis seasonality: unspecified Allergic rhinitis trigger: unspecified Qualified Code(s): J30.9 - Allergic rhinitis, unspecified Plan: Continue Loratadine 10 mg QD PRN (12) Vitamin D deficiency: Code(s): E55.9 - Vitamin D deficiency, unspecified Plan: Continue Vitamin D3 2000 units QD (13) Post traumatic stress disorder (PTSD): Code(s): F43.10 - Post-traumatic stress disorder, unspecified Plan: Follow up with his therapist/psychiatrist as scheduled - is now seeing a therapist regularly and states that his sessions are helping Continue Hydroxyzine 25 mg TID PRN; he also used to take Clonidine PRN but has not had to take it in a few months now (14) Smoker: Code(s): F17.200 - Nicotine dependence, unspecified, uncomplicated Plan: Counseled again on smoking cessation Low dose CT lung screening done last year came out normal (15) Obesity (BMI 30-39.9): Code(s): E66.9 - Obesity, unspecified Plan: Reinforced diet/exercise as tolerated/lose weight Plan Follow up in 3 months Orders: Orders MR lumbar spine wo con 09/21/23 M54.16 - Radiculopathy, lumbar region, R29.898 - Other symptoms and signs involving the musculoskeletal system Complete Blood Count Auto Diff 3 Months D64.9 - Anemia, unspecified Comprehensive [place]. Panel Fast 3 Months E78.00 - Pure hypercholesterolemia, unspecified Lipid Panel 3 Months E78.00 - Pure hypercholesterolemia, unspecified Hemoglobin A1c 3 Months R73.01 - Impaired fasting glucose UA CC w/rflx Micro + Cult 3 Months R30.0 - Dysuria Vitamin D 25-OH Total 3 Months E55.9 - Vitamin D deficiency, unspecified Coding Level of Care Code Est Pt Level 4 (01255) Complex EM visit Add On G2211 Diagnoses Mixed hyperlipidemia E78.2 Essential hypertension I10 Impaired fasting glucose R73.01 Elevated LFTs R79.89 Cervical spondylosis M47.812 Lumbar degenerative disc disease M51.36 Left lumbar radiculopathy M54.16 Left rotator cuff tear arthropathy M75.102; M12.812 GERD without esophagitis K21.9 Obstructive sleep apnea G47.33 Allergic rhinitis, unspecified seasonality, unspecified trigger J30.9 Allergic rhinitis seasonality: unspecified Allergic rhinitis trigger: unspecified Vitamin D deficiency E55.9 Post traumatic stress disorder (PTSD) F43.10 Smoker F17.200 Obesity (BMI 30-39.9) E66.9
[2023-09-21 15:54] VITALS: BP 140/80; PULSE 87; O2SAT 96; BMI 33.1
== END 2023-09-21 16:52 | disposition home or self-care (01) ==
PROVIDERS: PCP Internal Medicine; Visit Provider Internal Medicine
DX: E78.2 Mixed hyperlipidemia (principal); I10 Essential (primary) hypertension; R73.01 Impaired fasting glucose; R79.89 Other specified abnormal findings of blood chemistry; M47.812 Spondylosis without myelopathy or radiculopathy, cervical region; M51.36 Other intervertebral disc degeneration, lumbar region; M54.16 Radiculopathy, lumbar region; M75.102 Unspecified rotator cuff tear or rupture of left shoulder, not specified as traumatic; M12.812 Other specific arthropathies, not elsewhere classified, left shoulder; K21.9 Gastro-esophageal reflux disease without esophagitis; G47.33 Obstructive sleep apnea (adult) (pediatric); J30.9 Allergic rhinitis, unspecified
CPT/HCPCS: 99214

== ENCOUNTER 2024-01-21 06:01 | Outpatient (REF) | payer OTHER, SELFPAY ==
[2024-01-21 06:13] LABS: MANUAL DIFF FLAG NO
[2024-01-21 07:04] LABS: Basophils Absolute Auto 0.1 X10*3/uL (0.0-0.2); Basophils Percent Auto 0.8 % (0-2); Eosinophils Percent Auto 0.1 % (0-4); Hematocrit 44.6 % (42.0-52.0); Hemoglobin 14.7 g/dl (14.0-18.0); Imm Gran Abs Auto 0.04 X10*3/uL (0.00-0.03); Imm Gran Pct Auto 0.4 % (0.0-0.4); Lymphocytes Absolute Auto 2.3 X10*3/uL (1.2-4.9); Lymphocytes Percent Auto 23.1 % (20-40); Mean Corpuscular Hemoglobin 31.5 pg (27.0-33.0); Mean Corpuscular Volume 95.5 fL (80.0-98.0); Mean Platelet Volume 8.8 fL (9.4-12.4); Monocytes Absolute Auto 0.9 X10*3/uL (0.1-1.2); Monocytes Percent Auto 8.6 % (2-11); Neutrophils Absolute Auto 6.7 x10*3/uL (2.0-8.3); Platelet Count 357 X10*3/uL (160-400); Red Blood Count 4.67 X10*6/uL (4.60-5.80); Red Cell Distribution Width 13.2 % (11.0-16.0); White Blood Count 10.1 X10*3/uL (4.8-10.8)
[2024-01-21 07:14] LABS: Appearance Urine Clear; Color Urine Yellow; Glucose Urine UA Negative (Negative); Leukocyte Esterase Urine Negative (Negative); Nitrite Urine Negative (Negative); PH 6.5 (5.0-9.0); Specific Gravity - Urine <= 1.005 (1.005-1.025); Urine Blood Negative (Negative); Urine Ketones Negative (Negative); Urine Protein Negative (Neg-Trace)
[2024-01-21 07:17] LABS: Estimated Average Glucose 117 mg/dL; Hemoglobin A1C 149.4239 umol/L; Hemoglobin A1c % 5.7 % (<6.0); Total Hemoglobin (HGBA1C) 3902.1047 umol/L
[2024-01-21 07:35] LABS: Alanine Aminotransferase 23 U/L (0-40); Albumin Level 4.4 g/dL (3.5-5.0); Alkaline Phosphatase 85 U/L (39-117); Anion Gap 12 (12-20); Aspartate Amino Transferase 29 U/L (5-37); Bilirubin Total 0.7 mg/dL (0.0-1.0); Blood Urea Nitrogen 15 mg/dL (9-16); Calcium 9.6 mg/dL (8.4-10.2); Carbon Dioxide 26 mmol/L (22-29); Chloride 106 mmol/L (96-108); Cholesterol 158 mg/dL (<200); Estimated Glomerular Filt Rate > 60; Glucose Fasting 103 mg/dL (60-99); HDL Cholesterol 35 mg/dL (>40); LDL Cholesterol Calculated 86 mg/dL (<100); Potassium 4.4 mmol/L (3.3-5.1); Sodium 140 mmol/L (135-145); Triglycerides 188 mg/dL (<150)
[2024-01-21 10:16] LABS: Vitamin D 25-OH Total 38.2 ng/mL (>30)
== END 2024-01-21 06:02 | disposition home or self-care (01) ==
LOC: HO.LAB 06:01
PROVIDERS: PCP Internal Medicine; Visit Provider Internal Medicine
DX: D64.9 Anemia, unspecified (principal); R30.0 Dysuria; E78.00 Pure hypercholesterolemia, unspecified; R73.01 Impaired fasting glucose; E55.9 Vitamin D deficiency, unspecified
CPT/HCPCS: 36415; 80053; 80061; 81003; 82306; 83036; 85025

== ENCOUNTER 2024-01-22 15:37 | Outpatient (AMB) | payer OTHER, SELFPAY ==
[2024-01-22 15:43] VITALS: BP 140/86; PULSE 86; O2SAT 97; BMI 33.3
--- NOTE | 2024-01-22 15:43 | A.OFFPC_ITS ---
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 Programs Required: No Accompanied by: Self / Same As Patient Allergies No Known Allergies [No Known Allergies*] Allergy (Verified 01/22/24 16:28) Medication List - Last Reconciled 01/22/24 by Todd Moscoso MD atorvastatin 20 mg PO BEDTIME 90 days cholecalciferol (vitamin D3) 50 mcg PO DAILY 90 days ibuprofen 800 mg PO Q8H PRN lisinopril 20 mg PO DAILY Tobacco use date assessed: 01/22/24 Fall risk assessment: No Falls in past year Last assessed Fall Risk: 01/22/24 Dental Screening Dental Screen Date: 01/22/24 Did you have a dental visit in the last 12 months?: No Did you have a dental problem in the last 6 months where you did not have access to dental care?: No Was dental information given to patient?: No HPI 3 month f/u HPI Details Patient comes in today for his follow-up visit States that he feels okay He denies any headaches or dizziness Denies any chest pains, no shortness of breath No nausea/vomiting, no abdominal pain No change in bowel habits noted He continues to experience increased pain in his left shoulder, which he states has been bothering him for a while now He had his follow-up labs done yesterday - to discuss his results [facility] Medical History Essential hypertension Obesity (BMI 30-39.9) Smoker Vitamin D deficiency Obstructive sleep apnea Allergic rhinitis GERD without esophagitis Cervical spondylosis Elevated LFTs Impaired fasting glucose Mixed hyperlipidemia Overweight (BMI 25.0-29.9) Lumbar degenerative disc disease Anxiety Surgical History Hx of colonoscopy (~04/2011) Family History Father Diabetes Mother Hypertension Social History Housing: Apartment Alcohol intake: never Patient Tobacco Use Status: Current everyday Tobacco user Tobacco use type: Cigarette Cigarettes Per Day: 15 e-Cigarette/Vaping Use: Never Used Second Hand Smoke Exposure: Yes service: No Current occupational status: employed 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 1. Little interest or pleasure in doing things: not at all 2. Feeling down, depressed, or hopeless: not at all 3. Trouble falling or staying asleep, or sleeping too much: not at all 4. Feeling tired or having little energy: not at all 5. Poor appetite or overeating: not at all 6. Feeling bad about yourself - or that you are a failure or have let yourself or your family down: not at all 7. Trouble concentrating on things, such as reading the newspaper or watching television: not at all 8. Moving or speaking so slowly that other people could have noticed. Or the opposite - being so fidgety or restless that you have been moving around a lot more than usual: not at all 9. Thoughts that you would be better off or of hurting yourself in some way: not at all Total score: 0 Depression Screening Interpretation: Negative Depression Screening Done: Yes 01394 - PHQ-9 Billing: Yes Source: Developed by Drs. Vincent Banks, Sherin Keller, Neptali Nuno and colleagues, with an educational devin from [employer]. Thrive Questionnaire Date Thrive assessed: 01/22/24 I am a: Patient What is your living situation today?: I have a steady place to live Within the past 12 months, did the food you bought not last and you didn't have the money to get more?: Never true Within the past 12 months, did you worry whether your food would run out before you got money to buy more?: Never true Do you have trouble paying for medicines?: No Do you have trouble getting transportation to medical appointments?: No Do you have trouble paying your heating and electricity bill?: No Do you have trouble taking care of your child, family member or friend?: No Do you have trouble with day-to-day activities such as bathing, preparing meals, shopping, managing finances, etc.?: No Are you currently unemployed and looking for a job?: No Are you interested in more education?: No Please select the resources that you would like help with: None Currently or been in a relationship where the following occur: No concerns reported THRIVE Score: 0 AUDIT C Alcohol Use Questionnaire (AUDIT-C) 1. How often do you have a drink containing alcohol?: Never 3. How often do you have six or more drinks on one occasion?: Never Total Score: 0 Score Reviewed/Action Taken: Yes QUENTIN-7 AMB Questionnaire QUENTIN-7 Date QUENTIN - 7 assessed: 01/22/24 Feeling nervous, anxious, or on edge: 0 = Not at all Not being able to stop or control worryin = Not at all Worrying too much about different things: 0 = Not at all Trouble relaxin = Not at all Being so restless that it is hard to sit still: 0 = Not at all Becoming easily annoyed or irritable: 0 = Not at all Feeling afraid as if something awful might happen: 0 = Not at all Total QUENTIN-7 score (0-4 normal; 5-9 mild; 10-14 moderate; 15-21 severe): 0 Source: Developed by Drs. Vincent Banks, Sherin Keller, Neptali Nuno and colleagues, with an educational devin from [employer]. Review of Systems Const Denies chills, Denies fatigue, Denies fever(s) and Denies headache(s) ENT Denies dysphagia, Denies dizziness, Denies otalgia, Denies headache(s), Reports neck pain, Denies odynophagia and Denies sore throat Card Denies chest pain, Denies palpitations and Reports dyspnea on exertion (occasional, mild) Resp Denies cough and Reports dyspnea on exertion (occasional, mild) GI Denies abdominal pain, Denies constipation, Denies dysphagia, Denies heartburn, Denies diarrhea, Denies nausea, Denies odynophagia and Denies vomiting Denies dysuria, Denies nocturia and Denies urinary frequency Musc Reports back pain (over the lumbar spine - chronic; increased on the left side recently ), Reports arthralgias (left shoulder - increasing), Reports neck pain, Reports numbness (over the back of the left thigh) and Reports radiating pain into limb (into the left lower extremity - see HPI) Skin/Breast Denies rash Neuro Denies dizziness, Denies headache(s) and Reports numbness (over the back of the left thigh) Psych Reports anxiety Endo Denies fatigue and Denies palpitations Physical exam (Primary Care) Vital Signs: Last Vital Signs Pulse 86 01/22/24 15:43 BP 140/86 H 01/22/24 15:43 Pulse Ox 97 01/22/24 15:43 Oxygen Delivery Method Room Air 01/22/24 15:43 BMI result Body Mass Index 33.3 Tobacco/Smoking Status: Tobacco use Status Tobacco use date assessed 01/22/24 01/22/24 15:47 Patient Tobacco Use Status Current everyday Tobacco 01/22/24 15:47 Tobacco use type Cigarette 01/22/24 15:47 e-Cigarette/Vaping Use Never Used 01/22/24 15:47 PHQ-9: PHQ-9 Score PHQ-9: Total score 0 01/22/24 16:31 Depression Screening Interpretation: Negative Thrive Assessment: Date of Thrive Assessment Date Thrive assessed 01/22/24 01/22/24 15:47 Currently or been in a relationship where the following occur: No concerns reported Const General: no acute distress and alert HENMT Ears: TM's normal bilaterally and EAC's normal Throat: Yes posterior oropharynx normal and Yes tonsils normal (no TP congestion noted) Neck Neck: Yes no lymphadenopathy and Yes tender Thyroid: Thyroid normal Resp Auscultation: clear to auscultation bilaterally, no rales and no wheezes Cardio Rate: regular rate Rhythm: regular rhythm Heart sounds: no murmurs GI Palpation (GI): Soft to palpation and nontender Auscultation: normal bowel sounds General: Yes no CVA tenderness Back/Spine/Pelvis Back: no CVA tenderness Cervical Spine: Cervical spine tenderness Thoracic/Lumbar Spine: paraspinal muscle tenderness on the left in the mid lumbar and in the lower lumbar and lumbar spinal tenderness Skin Rashes: no rashes Extrem General: Yes no clubbing, cyanosis or edema Left upper extremity: shoulder/upper arm Details: tenderness Location: of the A- C joint (mild) Results Reviewed Results Reviewed: Laboratory Tests 07/10/24 11/11/24 11/11/24 07:28 06:12 06:16 WBC 10.1 Hgb 14.7 Hct 44.6 Plt Count 357 Sodium 140 Potassium 4.4 Creatinine 0.86 Estimated GFR > 60 Fasting Glucose 103 H Hemoglobin A1c % 5.7 Calcium 9.6 AST 29 ALT 23 Triglycerides 188 H Cholesterol 158 LDL Cholesterol, Calc 86 HDL Cholesterol 35 L 25-OH Vitamin D Total 38.2 TSH 2.51 Ur Specific [place] <= 1.005 Urine Protein Negative Urine Glucose (UA) Negative Urine Blood Negative Urine Nitrite Negative Ur Leukocyte Esterase Negative Coding Level of Care Code Est Pt Level 4 (99748) Complex EM visit Add On G2211 Diagnoses Mixed hyperlipidemia E78.2 Essential hypertension I10 Impaired fasting glucose R73.01 Elevated LFTs R79.89 Cervical spondylosis M47.812 Degeneration of intervertebral disc of lumbar region with discogenic back pain and lower extremity pain M51.362 Disc-related pain type: discogenic back pain and lower extremity pain Left lumbar radiculopathy M54.16 Left rotator cuff tear arthropathy M75.102; M12.812 GERD without esophagitis K21.9 Obstructive sleep apnea G47.33 Allergic rhinitis, unspecified seasonality, unspecified trigger J30.9 Allergic rhinitis trigger: unspecified Allergic rhinitis seasonality: unspecified Vitamin D deficiency E55.9 Post traumatic stress disorder (PTSD) F43.10 Smoker F17.200 Obesity (BMI 30-39.9) E66.9 Additional Codes PHQ-9 - 78559 - PHQ-9 Billing: Yes ([id number]) Assessment & Plan Assessment & Plan (1) Mixed hyperlipidemia: Code(s): E78.2 - Mixed hyperlipidemia Category: Medical Plan: Results of his labs done yesterday reviewed and discussed with patient Reinforced low cholesterol diet Continue Atorvastatin 20 mg QD Will recheck his labs and fasting lipids in 3 months for follow up (2) Essential hypertension: Code(s): I10 - Essential (primary) hypertension Category: Medical Plan: Reinforced low sodium diet - goal is systolic BP of 120 mm or less His blood pressure is still elevated today Will go ahead and increase his Lisinopril from 20 mg to 30 mg QD He is reminded to continue monitoring his BP regularly (3) Impaired fasting glucose: Code(s): R73.01 - Impaired fasting glucose Category: Medical Plan: His HgbA1c has increased slightly to 5.7% on his labs done yesterday (was at 5.4% a few months ago) Reinforced low calorie/low carb diet (4) Elevated LFTs: Code(s): R79.89 - Other specified abnormal findings of blood chemistry Category: Medical Plan: Improved; his LFTs have remained normal on his labs done yesterday - were most likely related to his weight and cholesterol level Will continue to monitor his LFTs regularly (5) Cervical spondylosis: Comment: Cervical spine x-rays done in early 2019 showed (+) mild multilevel ventral spondylosis at C3-C4, C4-C5 and C6-C7 Code(s): M47.812 - Spondylosis without myelopathy or radiculopathy, cervical region Category: Medical Plan: Patient states that his neck symptoms currently remain adequately controlled on his current Rx - he takes Ibuprofen or Aleve PRN (6) Lumbar degenerative disc disease: Code(s): M51.36 - Other intervertebral disc degeneration, lumbar region Category: Medical Qualifiers: Disc-related pain type: discogenic back pain and lower extremity pain Qualified Code(s): M51.362 - Other intervertebral disc degeneration, lumbar region with discogenic back pain and lower extremity pain Plan: Reinforced activity and weight-lifting restrictions Repeat lumbar spine x-rays done a couple of years ago came out okay We sent him for a lumbar spine MRI for further evaluation at his last visit to further evaluate his radicular symptoms but the MRI was denied by his health insurance company Continue Ibuprofen 800 mg TID with food PRN and Gabapentin 100 mg Q HS (7) Left lumbar radiculopathy: Code(s): M54.16 - Radiculopathy, lumbar region Category: Medical Plan: We tried sending patient for an MRI of the lumbar spine for further evaluation a few months ago but this was denied by his health insurance company Advised that if his symptoms continue to progress, we will consider referring him to Neurosurgery for further evaluation although the neurosurgeons will usually require a recent MRI before they will schedule an appointment Advised patient that we may need to refer him to physical therapy first before his insurance will agree to cover an MRI - we will reassess our options if his situation gets to that point (8) Left rotator cuff tear arthropathy: Comment: MRI of the left shoulder done on 12/24/2019 revealed (+) mild rotator cuff tendinosis (no tear), minor subacromial-subdeltoid bursitis, small lateral subacromial spur and mild osteoarthritis of the acromioclavicular joint, diffuse superior labral tear with possible extension through the posterior labrum; anterior labral degeneration and mild glenohumeral arthrosis Code(s): M75.102 - Unspecified rotator cuff tear or rupture of left shoulder, not speci fied as traumatic; M12.812 - Other specific arthropathies, not elsewhere classified, left shoulder Category: Medical Plan: Patient states that his left shoulder symptoms improved a lot with cortisone injection (from orthopedics) and with physical therapy last year, but his symptoms have recently gotten a lot worse again Will refer him back to orthopedics for further management and for consideration for a repeat cortisone injection (9) GERD without esophagitis: Code(s): K21.9 - Gastro-esophageal reflux disease without esophagitis Category: Medical Plan: Dietary restrictions reinforced (10) Obstructive sleep apnea: Code(s): G47.33 - Obstructive sleep apnea (adult) (pediatric) Category: Medical Plan: Patient states that he has not been using his CPAP device at all for a while now and feels well without it Advised that this may be part of the reason for his occasional SAUCEDA; patient also is still smoking so that may also be a factor Have advised him to consider at least following up with sleep medicine again for reassessment (11) Allergic rhinitis: Code(s): J30.9 - Allergic rhinitis, unspecified Category: Medical Qualifiers: Allergic rhinitis trigger: unspecified Allergic rhinitis seasonality: unspecified Qualified Code(s): J30.9 - Allergic rhinitis, unspecified Plan: Continue Loratadine 10 mg QD PRN (12) Vitamin D deficiency: Code(s): E55.9 - Vitamin D deficiency, unspecified Category: Medical Plan: Continue Vitamin D3 2000 units QD (13) Post traumatic stress disorder (PTSD): Code(s): F43.10 - Post-traumatic stress disorder, unspecified Category: Medical Plan: Follow up with his therapist/psychiatrist as scheduled - is now seeing a therapist regularly and states that his sessions are helping Continue Hydroxyzine 25 mg TID PRN; he also used to take Clonidine PRN but has not had to take it in a few months now (14) Smoker: Code(s): F17.200 - Nicotine dependence, unspecified, uncomplicated Category: Social Hx Plan: Patient is counseled again on smoking cessation (15) Obesity (BMI 30-39.9): Code(s): E66.9 - Obesity, unspecified Category: Medical Plan: Reinforced diet/exercise as tolerated/lose weight Plan Follow up in 3 months Orders: Orders Lipid Panel 3 Months E78.00 - Pure hypercholesterolemia, unspecified Hemoglobin A1c 3 Months R73.01 - Impaired fasting glucose TSH reflex Free T4 3 Months E78.00 - Pure hypercholesterolemia, unspecified UA CC w/rflx Micro + Cult 3 Months R30.0 - Dysuria Vitamin D 25-OH Total 3 Months E55.9 - Vitamin D deficiency, unspecified Complete Blood Count Auto Diff 3 Months D64.9 - Anemia, unspecified Comprehensive [place]. Panel Fast 3 Months E78.00 - Pure hypercholesterolemia, unspecified Referrals Orthopedics Referral G89.29 - Other chronic pain, M25.512 - Pain in left shoulder Medications: Changed From lisinopril 20 mg PO DAILY To lisinopril 30 mg PO DAILY 90 days 90 tabs 1RF
== END 2024-01-22 16:35 | disposition home or self-care (01) ==
PROVIDERS: PCP Internal Medicine; Visit Provider Internal Medicine
DX: E78.2 Mixed hyperlipidemia (principal); I10 Essential (primary) hypertension; Z68.33 Body mass index [BMI] 33.0-33.9, adult; E66.9 Obesity, unspecified; R73.01 Impaired fasting glucose; R79.89 Other specified abnormal findings of blood chemistry; M47.812 Spondylosis without myelopathy or radiculopathy, cervical region; M51.362 Other intervertebral disc degeneration, lumbar region with discogenic back pain and lower extremity pain; M54.16 Radiculopathy, lumbar region; M75.102 Unspecified rotator cuff tear or rupture of left shoulder, not specified as traumatic; M12.812 Other specific arthropathies, not elsewhere classified, left shoulder; K21.9 Gastro-esophageal reflux disease without esophagitis

== ENCOUNTER → 2024-01-22 15:37 | Outpatient (BNVA) | payer OTHER, SELFPAY | PROVIDERS: PCP Internal Medicine; Visit Provider Internal Medicine | DX: E78.2 Mixed hyperlipidemia (principal); I10 Essential (primary) hypertension; R73.01 Impaired fasting glucose; R79.89 Other specified abnormal findings of blood chemistry; M47.812 Spondylosis without myelopathy or radiculopathy, cervical region; M51.362 Other intervertebral disc degeneration, lumbar region with discogenic back pain and lower extremity pain; M54.16 Radiculopathy, lumbar region; M75.102 Unspecified rotator cuff tear or rupture of left shoulder, not specified as traumatic; M12.812 Other specific arthropathies, not elsewhere classified, left shoulder; K21.9 Gastro-esophageal reflux disease without esophagitis; G47.33 Obstructive sleep apnea (adult) (pediatric); J30.9 Allergic rhinitis, unspecified; E55.9 Vitamin D deficiency, unspecified; F43.10 Post-traumatic stress disorder, unspecified; E66.9 Obesity, unspecified; Z68.33 Body mass index [BMI] 33.0-33.9, adult; F17.200 Nicotine dependence, unspecified, uncomplicated; Z79.899 Other long term (current) drug therapy; Z71.6 Tobacco abuse counseling | CPT/HCPCS: 96127 ==

== ENCOUNTER 2024-02-13 13:34 | Outpatient (AMB) | payer OTHER, SELFPAY ==
--- NOTE | 2024-02-13 13:41 | A.OFFVIS_ITS ---
Intake Visit Reasons: Inj-Left shoulder inj-last 04/12/23 Intake Note: Tanya a 63 yr old male who presents today for a follow up of left shoulder pain, last injection 04/12/23. Patient reports injection provided him with relief until the end of December. He is requesting to repeat injection. Allergies No Known Allergies [No Known Allergies*] Allergy (Verified 02/13/24 13:52) Medication List - Last Reconciled 02/13/24 by Mandy Seals PA-C atorvastatin 20 mg PO BEDTIME 90 days cholecalciferol (vitamin D3) 50 mcg PO DAILY 90 days ibuprofen 800 mg PO Q8H PRN lisinopril 30 mg PO DAILY 90 days HPI HPI Inj-Left shoulder inj-last 04/12/23: Details: 64-year-old male who returns to the office today for a follow-up of left shoulder pain. He had his last injection on 04/12/23 that provided him relief until the end of December. The injection allowed him to perform AODLs without discomfort. He would like to repeat the injection. PENDING SALE TO [facility] Medical History Essential hypertension Obesity (BMI 30-39.9) Smoker Vitamin D deficiency Obstructive sleep apnea Allergic rhinitis GERD without esophagitis Cervical spondylosis Elevated LFTs Impaired fasting glucose Mixed hyperlipidemia Overweight (BMI 25.0-29.9) Lumbar degenerative disc disease Anxiety Surgical History Hx of colonoscopy (~04/2011) Family History Father Diabetes Mother Hypertension Social History Housing: Apartment Alcohol intake: never Patient Tobacco Use Status: Current everyday Tobacco user Tobacco use type: Cigarette Cigarettes Per Day: 15 e-Cigarette/Vaping Use: Never Used Second Hand Smoke Exposure: Yes service: No Current occupational status: employed 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 / [employer] Cognitive needs: No Hearing needs: No Vision needs: No Review of Systems Const All systems reviewed & are unremarkable except as noted in HPI and below Physical Exam Const General: cooperative, healthy appearing, comfortable, no acute distress, well developed and alert Orientation/consciousness: patient oriented x3 HEENT Head: Yes normal to inspection, Yes normocephalic and Yes atraumatic Eyes General: appearance normal, both eyes and all related structures Resp Effort & Inspection: normal respiratory effort and able to speak in complete sen tences Cardio Rate: regular rate Peripheral pulses: Peripheral pulses 2+ throughout GI Palpation (GI): Soft to palpation Skin Lesions: no lesions Rashes: no rashes Neuro General: patient oriented x3 Extrem Other: Left shoulder normal to inspection. Tenderness over the bicipital groove and along the deltoid region of the shoulder. Forward flexion to 175, external rotation to 90, internal rotation to S1. 5/5 RTC strength with mild discomfort. Positive Jaimes. NVI. Office Procedures AMB Joint Injection/Aspiration Joint Injection/Aspiration Primary Site: left shoulder Prep: site was prepped using aseptic technique, ethochloride spray was applied and injection warnings given Injected: 80 mg of, DepoMedrol, with 8 mL of, 1% plain lidocaine and in the subcromial space Approach Used: posterolateral Procedure: The patient tolerated the procedure well and there was some relief with the local anesthesia Coding 95474 - Glenohumeral/Tronchanteric Bursa/Intraarticular Procedure code (CPT) selection complete Assessment & Plan Assessment & Plan (1) Subacromial tendonitis of left shoulder: Code(s): M77.8 - Other enthesopathies, not elsewhere classified Category: Medical Plan We discussed options today, which include steroid injection. The patient did consent to move forward with the left shoulder injection, which was tolerated well. I recommended rest, ice, and elevation and OTC anti-inflammatories as needed for discomfort. If symptoms persist or worsens over the next 6-8 weeks, patient will contact the office, otherwise follow-up as needed. Patient Instructions: Scribed for Mandy Seals PA-C, by [facility] medical office scheduler, on 02/13/2024 at 1:45 PM EST.? I, Mandy Seals PA-C, have personally reviewed and agree with the information entered by the scribe. Coding Level of Care Code Est Pt Level 3 (60211) Complex EM visit Add On G2211 Diagnoses Subacromial tendonitis of left shoulder M77.8 CPT Codes Coding - Joint 7: 70982 - Glenohumeral/Tronchanteric Bursa/Intraarticular ([id number])
== END 2024-02-13 14:46 | disposition home or self-care (01) ==
PROVIDERS: PCP Internal Medicine; Visit Provider Physician Assistant
DX: M77.8 Other enthesopathies, not elsewhere classified (principal)
CPT/HCPCS: 20610; 99213

== ENCOUNTER → 2024-02-13 13:34 | Outpatient (BNVA) | payer OTHER, SELFPAY | PROVIDERS: PCP Internal Medicine; Visit Provider Physician Assistant | DX: M77.8 Other enthesopathies, not elsewhere classified (principal); M25.512 Pain in left shoulder | CPT/HCPCS: 20610; J1010; J2003 ==

== ENCOUNTER 2024-05-03 07:03 | Outpatient (REF) | payer OTHER, SELFPAY ==
--- OUTSIDE RECORDS SUMMARY | 2024-05-03 07:05 | XMS_ITS | Clinical Summary ---
Author Organization [facility] Address [address] [place] [address] Care Team Providers Care Quiller Hand Name Role Phone Unavailable Primary Care Provider Unavailabl e Source Comments PLEASE NOTE, if this patient is a minor, it may be UNLAWFUL to discuss sensitive information that is contained in these records (such as FAMILY PLANNING, MENTAL HEALTH or SUBSTANCE ABUSE) with the minor patient's parent or other person without the patient's specific authorization.[facility] Immunizations Name Administration Dates Next Due Moderna COVID-19 Vaccine, re d cap blue label, 12+ Primary Series 09/01/2020,08/04/2020 Social History Tobacco Use Types Packs/Day Years Used Date Smoking Tobacco: Never Assessed Social Connections Answer Date Recorded Social Connections and Isolation 0 09/15/2023 Financial Resource Strain Answer Date R ecorded Financial Resource Strain 0 2023 Stress Answer Date Recorded Stress 0 09/15/2023 Physical Activity Answer Date Recorded Physical Activity 0 09/15/2023 Food Insecurity Answer Date Recorded Food 0 09/15/2023 Transportation Needs Answer Date Record ed Transportation 0 09/15/2023 Housing Stability Answer Date Recorded Housing 0 09/15/2023 Safety and Environment Answer Date Eduardo rded Safety 0 09/15/2023 Utilities Answer Date Recorded Utilities 0 09/15/2023 Employment Answer Date Recorded Employment 0 09/15/2023 Sex and Gender Information Value Date Recorded Sex Assigned at Not on file Legal Sex Male 11:10 AM PDT Gender Identity Not on file Sexual Orientation Not on file Plan of Treatment Health Maintenance Due Date Last Done Comments Diabetes Screening 1959 Hepatitis C Screening 1959 Lipid Screening 1959 Tobacco Screening 1959 HIV Screening 1974 Annual Preventive Care Visit 1977 Hypertension Screening (#1) 1977 Imm-DTaP/Tdap/Td (1 - Tdap) 1978 CT Colonography 01/22/2004 Colonoscopy 01/22/2004 Colorectal Cancer Screening 01/22/2004 FIT/gFOBT 01/22/2004 Fecal DNA 01/22/2004 Flexible Sigmoidoscopy 01/22/2004 Imm-Zoster, Recombinant (1 of 2) 2009 Alcohol and Drug Screen 03/12/2023 Depression Annual Screen 03/12/2023 Pce-[id number]-02 ( season) 2023 021, 08/04/2020 Imm-Influenza (#1) 2023 Abdominal Aortic Aneurysm Screening 01/22/2024 Falls Prevention 01/22/2024 Imm-Pneumococcal 65+ (1 of 1 - PCV) 01/22/2024 Insurance [facility]
--- OUTSIDE RECORDS SUMMARY | 2024-05-03 07:05 | XMS_ITS | Clinical Summary ---
Author Organization [facility] ity Address [address] [place] [address] Care Team Providers Care Professor Of Fine Art Name Role Phone Unavailable Primary Care Provider Unavailabl e Social History Tobacco Use Types Packs/Day Years Used Date Smoking Tobacco: Never Assessed Sex and Gender Information Value Date Recorded Sex Assigned at Not on file Legal Sex Male 5:43 AM EST Gender Identity Not on file Sexual Orientation Not on file Plan of Treatment Health Maintenance Due Date Last Done Comments DTaP,Tdap,and Td Vaccines (1 - Tdap) 1978 Pneumococcal Vaccine: 50+ Ye ars (1 of 1 - PCV) 2009 Zoster Vaccines (1 of 2) 2009 Abdominal Aortic Aneurysm (A AA) Screen 02/12/2022 Cholesterol Screening (Lipid Panel) 02/12/2022 Colorectal Cancer Screening: Colonoscopy 02/12/2022 Depression Screening 02/12/2022 Hepatitis C Screening 02/12/2022 Social Influencers of Health Screening 02/12/2022 COVID-19 Vaccine ( - 2023-2 5 season) 2023 Influenza Vaccine (#1) 2023 Falls Risk Assessment 01/22/2024 RSV Immunization Patients 60 + Years Old (1 - 1-dose 75+ series) 2034 HIB Vaccines Aged Out No longer eligi ble based on patient's age to complete this topic HPV Vaccines Aged Out No longer eligi ble based on patient's age to complete this topic Hepatitis A Vaccines Aged Out No long er eligible based on patient's age to complete this topic Hepatitis B Vaccines Aged Out No long er eligible based on patient's age to complete this topic IPV Vaccines Aged Out No longer eligi ble based on patient's age to complete this topic MMR Vaccines Aged Out No longer eligi ble based on patient's age to complete this topic Meningococcal ACWY Vaccine Aged Out N o longer eligible based on patient's age to complete this topic Meningococcal B Vacine Aged Out No lo nger eligible based on patient's age to complete this topic Pneumococcal Vaccine: Pediat rics (0 to 5 Years) and At-Risk Patients (6 to 64 Years) Aged Out No longer eligible b ased on patient's age to complete this topic RSV Immunization Patients Un rocio 20 months Aged Out No longer eligible b ased on patient's age to complete this topic Varicella Vaccines Aged Out No longer eligible based on patient's age to complete this topic
[2024-05-03 07:22] LABS: MANUAL DIFF FLAG NO
[2024-05-03 08:10] LABS: Basophils Absolute Auto 0.1 X10*3/uL (0.0-0.2); Basophils Percent Auto 0.7 % (0-2); Eosinophils Absolute Auto 0.1 X10*3/uL (0.0-0.4); Hematocrit 42.9 % (42.0-52.0); Hemoglobin 14.2 g/dl (14.0-18.0); Imm Gran Abs Auto 0.05 X10*3/uL (0.00-0.03); Imm Gran Pct Auto 0.4 % (0.0-0.4); Lymphocytes Absolute Auto 2.8 X10*3/uL (1.2-4.9); Lymphocytes Percent Auto 23.2 % (20-40); Mean Corpuscular HGB Conc 33.1 g/dl (31.0-36.0); Mean Corpuscular Hemoglobin 31.6 pg (27.0-33.0); Mean Corpuscular Volume 95.5 fL (80.0-98.0); Mean Platelet Volume 8.8 fL (9.4-12.4); Monocytes Percent Auto 8.2 % (2-11); Neutrophils Absolute Auto 8.2 x10*3/uL (2.0-8.3); Neutrophils Percent Auto 66.5 % (45-73); Platelet Count 412 X10*3/uL (160-400); Red Blood Count 4.49 X10*6/uL (4.60-5.80); Red Cell Distribution Width 13.7 % (11.0-16.0); White Blood Count 12.3 X10*3/uL (4.8-10.8)
[2024-05-03 08:14] LABS: Estimated Average Glucose 117 mg/dL; Hemoglobin A1C 143.2522 umol/L; Hemoglobin A1c % 5.7 % (<6.0); Total Hemoglobin (HGBA1C) 3685.6475 umol/L
[2024-05-03 09:13] LABS: Alanine Aminotransferase 22 U/L (0-40); Albumin Level 4.3 g/dL (3.5-5.0); Alkaline Phosphatase 84 U/L (39-117); Anion Gap 11 (12-20); Aspartate Amino Transferase 21 U/L (5-37); Bilirubin Total 0.6 mg/dL (0.0-1.0); Blood Urea Nitrogen 14 mg/dL (9-16); Calcium 9.2 mg/dL (8.4-10.2); Carbon Dioxide 25 mmol/L (22-29); Chloride 108 mmol/L (96-108); Cholesterol 163 mg/dL (<200); Estimated Glomerular Filt Rate > 60; Glucose Fasting 94 mg/dL (60-99); HDL Cholesterol 33 mg/dL (>40); LDL Cholesterol Calculated 91 mg/dL (<100); Potassium 4.2 mmol/L (3.3-5.1); Sodium 140 mmol/L (135-145); Total Protein 7.2 g/dL (6.5-8.0); Triglycerides 195 mg/dL (<150)
[2024-05-03 09:24] LABS: Appearance Urine Clear; Color Urine Yellow; Glucose Urine UA Negative (Negative); Leukocyte Esterase Urine Negative (Negative); Nitrite Urine Negative (Negative); Specific Gravity - Urine 1.015 (1.005-1.025); Urine Blood Negative (Negative); Urine Ketones Negative (Negative); Urine Protein Negative (Neg-Trace)
[2024-05-03 09:31] LABS: Vitamin D 25-OH Total 35.8 ng/mL (>30)
== END 2024-05-03 07:04 | disposition home or self-care (01) ==
LOC: HO.LAB 07:03
PROVIDERS: PCP Internal Medicine; Visit Provider Internal Medicine
DX: D64.9 Anemia, unspecified (principal); R73.01 Impaired fasting glucose; E78.00 Pure hypercholesterolemia, unspecified; R30.0 Dysuria; E55.9 Vitamin D deficiency, unspecified
CPT/HCPCS: 36415; 80053; 80061; 81003; 82306; 83036; 84443; 85025

== ENCOUNTER → 2024-06-11 12:51 | Outpatient (BNVA) | payer SELFPAY | PROVIDERS: PCP Internal Medicine; Visit Provider Physician Assistant Medical | DX: Z02.79 Encounter for issue of other medical certificate (principal) ==

== ENCOUNTER 2024-09-10 15:16 | Outpatient (AMB) | payer OTHER, SELFPAY ==
[2024-09-10 15:19] VITALS: BP 142/86; PULSE 75; O2SAT 97; BMI 33.0
--- NOTE | 2024-09-10 15:19 | A.OFFPC_ITS ---
Vital Signs 09/10/24 15:19 Height 5 ft 4 in Weight 192 lb 2 oz BMI 33.0 BP 142/86 H Blood Pressure Location Lt brachial Position Sitting Pulse 75 Pulse Source Pulse Oximeter Pulse Oximetry (%) 97 Oxygen Delivery Method Room Air Intake Visit Reasons: HTN, hyperlipidemia- see comments Service Center Appraiser Required: No Accompanied by: Self / Same As Patient Allergies No Known Allergies (No Known Allergies*) Allergy (Verified 09/10/24 16:24) Medication List - Last Reconciled 09/10/24 by Todd Moscoso MD atorvastatin 20 mg PO BEDTIME 90 days cholecalciferol (vitamin D3) 50 mcg PO DAILY 90 days ibuprofen 800 mg PO Q8H PRN lisinopril 30 mg PO DAILY 90 days Tobacco use date assessed: 09/10/24 Fall risk assessment: No Falls in past year Last assessed Fall Risk: 09/10/24 Dental Screening Dental Screen Date: 09/10/24 Did you have a dental visit in the last 12 months?: No Did you have a dental problem in the last 6 months where you did not have access to dental care?: No Was dental information given to patient?: No HPI HTN, hyperlipidemia- see comments HPI Details Patient comes in today for his follow-up visit - he was last seen back in January 2024 as he apparently missed or had to reschedule his follow-up visit a few months ago States that he currently feels okay and that his previous left shoulder pain improved significantly again with arthroscopic injection with cortisone from Orthopedics back in February 2024 He denies any headaches or dizziness Denies any chest pains, no increased shortness of breath No nausea/vomiting, no abdominal pain No change in bowel habits noted States that he still has chronic low back pain but his back pain has been ma nageable for the most part lately He has been experiencing some pain and discomfort in middle of his right forearm for the past few weeks He does not recall any recent injury or trauma to his forearm and notes that his right forearm symptoms are often worse towards the later part of today States that he was not able to get his follow-up labs done prior to his appointment today as he reportedly went to the lab a couple of days ago and was advised that he does not have any pre-existing lab orders in his file Patient was advised that his orders were placed yesterday as soon as we received his message but he apparently did not get this information on time States that he will go and try to get his labs done as soon as he is able to, possibly in the next couple of days [facility] Medical History Essential hypertension Obesity (BMI 30-39.9) Smoker Vitamin D deficiency Obstructive sleep apnea Allergic rhinitis GERD without esophagitis Cervical spondylosis Elevated LFTs Impaired fasting glucose Mixed hyperlipidemia Overweight (BMI 25.0-29.9) Lumbar degenerative disc disease Anxiety Surgical History Hx of colonoscopy (~04/2011) Family History Father Diabetes Mother Hypertension Social History Housing: Apartment Alcohol intake: never Patient Tobacco Use Status: Current everyday Tobacco user Tobacco use type: Cigarette Cigarettes Per Day: 15 e-Cigarette/Vaping Use: Never Used Second Hand Smoke Exposure: Yes service: No Current occupational status: employed 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 1. Little interest or pleasure in doing things: not at all 2. Feeling down, depressed, or hopeless: not at all 3. Trouble falling or staying asleep, or sleeping too much: not at all 4. Feeling tired or having little energy: not at all 5. Poor appetite or overeating: not at all 6. Feeling bad about yourself - or that you are a failure or have let yourself or your family down: not at all 7. Trouble concentrating on things, such as reading the newspaper or watching television: not at all 8. Moving or speaking so slowly that other people could have noticed. Or the opposite - being so fidgety or restless that you have been moving around a lot more than usual: not at all 9. Thoughts that you would be better off or of hurting yourself in some way: not at all Total score: 0 Depression Screening Interpretation: Negative Depression Screening Done: Yes 75443 - PHQ-9 Billing: Yes Source: Developed by Drs. Vincent Banks, Sherin Keller, Neptali Nuno and colleagues, with an educational devin from [employer]. Thrive Questionnaire Date Thrive assessed: 09/10/24 I am a: Patient What is your living situation today?: I have a steady place to live Within the past 12 months, did the food you bought not last and you didn't have the money to get more?: I choose not to answer this question Within the past 12 months, did you worry whether your food would run out before you got money to buy more?: Never true Do you have trouble paying for medicines?: No Do you have trouble getting transportation to medical appointments?: No Do you have trouble paying your heating and electricity bill?: No Do you have trouble taking care of your child, family member or friend?: No Do you have trouble with day-to-day activities such as bathing, preparing meals, shopping, managing finances, etc.?: No Are you currently unemployed and looking for a job?: No Are you interested in more education?: No Please select the resources that you would like help with: None Currently or been in a relationship where the following occur: No concerns reported THRIVE Score: 0 AUDIT C Alcohol Use Questionnaire (AUDIT-C) 1. How often do you have a drink containing alcohol?: Monthly or less 2. How many drinks containing alcohol do you have on a typical day when you are drinking?: 1 or 2 3. How often do you have six or more drinks on one occasion?: Never Total Score: 1 Score Reviewed/Action Taken: Yes QUENTIN-7 AMB Questionnaire QUENTIN-7 Date QUENTIN - 7 assessed: 09/10/24 Feeling nervous, anxious, or on edge: 0 = Not at all Not being able to stop or control worryin = Not at all Worrying too much about different things: 0 = Not at all Trouble relaxin = Not at all Being so restless that it is hard to sit still: 0 = Not at all Becoming easily annoyed or irritable: 0 = Not at all Feeling afraid as if something awful might happen: 0 = Not at all Total QUENTIN-7 score (0-4 normal; 5-9 mild; 10-14 moderate; 15-21 severe): 0 Source: Developed by Drs. Vincent Banks, Sherin Keller, Neptali Nuno and colleagues, with an educational devin from [employer]. Review of Systems Const Denies chills, Denies fatigue, Denies fever(s) and Denies headache(s) ENT Denies dysphagia, Denies dizziness, Denies otalgia, Denies headache(s), Reports neck pain, Denies odynophagia and Denies sore throat Card Denies chest pain, Denies palpitations and Reports dyspnea on exertion (occasional, mild) Resp Denies chest congestion, Denies cough and Reports dyspnea on exertion (occasional, mild) GI Denies abdominal pain, Denies constipation, Denies dysphagia, Denies heartburn, Denies diarrhea, Denies nausea, Denies odynophagia and Denies vomiting Denies dysuria, Denies nocturia and Denies urinary frequency Musc Details: (+) recurrent pain over the middle of his right forearm Reports back pain (over the lumbar spine - chronic), Reports arthralgias (left shoulder - improved with cortisone injections a few months ago), Reports neck pain and Reports radiating pain into limb (into the left lower extremity at times) Skin/Breast Denies rash Neuro Denies dizziness and Denies headache(s) Psych Reports anxiety Endo Denies fatigue and Denies palpitations Physical exam (Primary Care) Vital Signs: Last Vital Signs Pulse 75 09/10/24 15:19 BP 142/86 H 09/10/24 15:19 Pulse Ox 97 09/10/24 15:19 Oxygen Delivery Method Room Air 09/10/24 15:19 BMI result Body Mass Index 33.0 Tobacco/Smoking Status: Tobacco use Status Tobacco use date assessed 09/10/24 09/10/24 15:23 Patient Tobacco Use Status Current everyday Tobacco 09/10/24 15:23 Tobacco use type Cigarette 09/10/24 15:23 e-Cigarette/Vaping Use Never Used 09/10/24 15:23 PHQ-9: PHQ-9 Score PHQ-9: Total score 0 09/10/24 16:24 Depression Screening Interpretation: Negative Thrive Assessment: Date of Thrive Assessment Date Thrive assessed 09/10/24 09/10/24 15:23 Currently or been in a relationship where the following occur: No concerns reported Const General: no acute distress and alert HENMT Ears: TM's normal bilaterally and EAC's normal Throat: Yes posterior oropharynx normal and Yes tonsils normal (no TP congestion noted) Neck Neck: No lymphadenopathy and Yes tender Thyroid: Thyroid normal Resp Auscultation: clear to auscultation bilaterally, no rales and no wheezes Cardio Rate: regular rate Rhythm: regular rhythm Heart sounds: no murmurs GI Palpation (GI): Soft to palpation and nontender Auscultation: normal bowel sounds General: Yes no CVA tenderness Back/Spine/Pelvis Back: no CVA tenderness Cervical Spine: Cervical spine tenderness Thoracic/Lumbar Spine: lumbar spinal tenderness Skin Rashes: no rashes Extrem General: Yes no clubbing, cyanosis or edema Right upper extremity: elbow/forearm Details: tenderness (on deep palpation over the middle of the forearm at the volar aspect) Left upper extremity: shoulder/upper arm Details: tenderness Location: of the A- C joint (mild - improved with cortisone injection a few months ago) Coding Level of Care Code Est Pt Level 4 (06595) Complex EM visit Add On G2211 Diagnoses Right forearm pain M79.631 Mixed hyperlipidemia E78.2 Essential hypertension I10 Impaired fasting glucose R73.01 Elevated LFTs R79.89 Cervical spondylosis M47.812 Degeneration of intervertebral disc of lumbar region with discogenic back pain and lower extremity pain M51.362 Disc-related pain type: discogenic back pain and lower extremity pain Left lumbar radiculopathy M54.16 Left rotator cuff tear arthropathy M75.102; M12.812 GERD without esophagitis K21.9 Obstructive sleep apnea G47.33 Allergic rhinitis, unspecified seasonality, unspecified trigger J30.9 Allergic rhinitis trigger: unspecified Allergic rhinitis seasonality: unspecified Vitamin D deficiency E55.9 Post traumatic stress disorder (PTSD) F43.10 Smoker F17.200 Obesity (BMI 30-39.9) E66.9 Additional Codes PHQ-9 - 56075 - PHQ-9 Billing: Yes ([id number]) Assessment & Plan Assessment & Plan (1) Right forearm pain: Code(s): M79.631 - Pain in right forearm Category: Medical Plan: Discussed with patient that this is likely a musculoskeletal injury or strain, especially 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 Will send patient for x-rays of the right forearm for further evaluation but advised that we do not expect to see any significant findings If his right forearm symptoms persist, would recommend a referral to Physical therapy for further evaluation and management (2) Mixed hyperlipidemia: Code(s): E78.2 - Mixed hyperlipidemia Category: Medical Plan: Patient was not able to get his follow-up labs done prior to his appointment today he states that there were no lab orders in his chart when he went to try to get his labs done a couple of days ago Have advised patient that his orders were placed today but he was not able to get this message in time Patient states that he will try to get his labs done sometime in the next couple of days Reinforced low cholesterol diet Continue Atorvastatin 20 mg QD Will recheck his labs and fasting lipids again in 4 months for follow up (3) Essential hypertension: Code(s): I10 - Essential (primary) hypertension Category: Medical Plan: Reinforced low sodium diet - goal is systolic BP of 120 mm or less His blood pressure is still elevated today Will go ahead and increase his Lisinopril again from 30 mg to 40 mg QD He is reminded to continue monitoring his BP regularly (4) Impaired fasting glucose: Code(s): R73.01 - Impaired fasting glucose Category: Medical Plan: His HgbA1c has increased slightly to 5.7% on his most recent labs done back in January 2024 (was previously at 5.4% a few months prior) Reinforced low calorie/low carb diet (5) Elevated LFTs: Code(s): R79.89 - Other specified abnormal findings of blood chemistry Category: Medical Plan: Improved; his LFTs have remained normal when they were last checked in January 2024 - these were most likely related to his weight and cholesterol level Will continue to monitor his LFTs regularly (6) Cervical spondylosis: Comment: Cervical spine x-rays done in early 2019 showed (+) mild multilevel ventral spondylosis at C3-C4, C4-C5 and C6-C7 Code(s): M47.812 - Spondylosis without myelopathy or radiculopathy, cervical region Category: Medical Plan: Patient states that his neck symptoms currently remain adequately controlled on his current Rx - he takes Ibuprofen or Aleve PRN (7) Lumbar degenerative disc disease: Code(s): M51.36 - Other intervertebral disc degeneration, lumbar region Category: Medical Qualifiers: Disc-related pain type: discogenic back pain and lower extremity pain Qualified Code(s): M51.362 - Other intervertebral disc degeneration, lumbar region with discogenic back pain and lower extremity pain Plan: Reinforced activity and weight-lifting restrictions Repeat lumbar spine x-rays done a couple of years ago came out okay We sent him for a lumbar spine MRI for further evaluation at his last visit to further evaluate his radicular symptoms but the MRI was denied by his health insurance company Continue Ibuprofen 800 mg TID with food PRN and Gabapentin 100 mg Q HS (8) Left lumbar radiculopathy: Code(s): M54.16 - Radiculopathy, lumbar region Category: Medical Plan: We tried sending patient for an MRI of the lumbar spine for further evaluation a few months ago but this was denied by his health insurance company Advised that if his symptoms continue to progress, we will consider referring him to Neurosurgery for further evaluation although the neurosurgeons will usual ly require a recent MRI before they will schedule an appointment Advised patient that we may need to refer him to physical therapy first before his insurance will agree to cover an MRI - we will reassess our options if his situation gets to that point (9) Left rotator cuff tear arthropathy: Comment: MRI of the left shoulder done on 12/24/2019 revealed (+) mild rotator cuff tendinosis (no tear), minor subacromial-subdeltoid bursitis, small lateral subacromial spur and mild osteoarthritis of the acromioclavicular joint, diffuse superior labral tear with possible extension through the posterior labrum; anterior labral degeneration and mild glenohumeral arthrosis Code(s): M75.102 - Unspecified rotator cuff tear or rupture of left shoulder, not specified as traumatic; M12.812 - Other specific arthropathies, not elsewhere classified, left shoulder Category: Medical Plan: Patient states that his left shoulder symptoms improved a lot with cortisone injection (from orthopedics) and with physical therapy a couple of years ago and again with cortisone injection last February 2024 Follow up with orthopedics as scheduled or as needed (10) GERD without esophagitis: Code(s): K21.9 - Gastro-esophageal reflux disease without esophagitis Category: Medical Plan: Dietary restrictions reinforced (11) Obstructive sleep apnea: Code(s): G47.33 - Obstructive sleep apnea (adult) (pediatric) Category: Medical Plan: Patient states that he has not been using his CPAP device at all for a while now and feels well without it Advised that this may be part of the reason for his occasional SAUCEDA; patient also is still smoking so that may also be a factor Have advised him to consider at least following up with sleep medicine again for reassessment (12) Allergic rhinitis: Code(s): J30.9 - Allergic rhinitis, unspecified Category: Medical Qualifiers: Allergic rhinitis trigger: unspecified Allergic rhinitis seasonality: unspecified Qualified Code(s): J30.9 - Allergic rhinitis, unspecified Plan: Continue Loratadine 10 mg QD PRN (13) Vitamin D deficiency: Code(s): E55.9 - Vitamin D deficiency, unspecified Category: Medical Plan: Continue Vitamin D3 2000 units QD (14) Post traumatic stress disorder (PTSD): Code(s): F43.10 - Post-traumatic stress disorder, unspecified Category: Medical Plan: Follow up with his therapist/psychiatrist as scheduled - is now seeing a therapist regularly and states that his sessions are helping Continue Hydroxyzine 25 mg TID PRN; he also used to take Clonidine PRN but has not had to take it in a few months now (15) Smoker: Code(s): F17.200 - Nicotine dependence, unspecified, uncomplicated Category: Social Hx Plan: Patient is counseled again on complete smoking cessation (16) Obesity (BMI 30-39.9): Code(s): E66.9 - Obesity, unspecified Category: Medical Plan: Reinforced diet/exercise as tolerated/lose weight Plan Follow-up in 4 months Orders: Orders XR forearm RT 2V 09/10/24 M79.631 - Pain in right forearm Complete Blood Count Auto Diff 4 Months D64.9 - Anemia, unspecified Lipid Panel 4 Months E78.00 - Pure hypercholesterolemia, unspecified UA CC w/rflx Micro + Cult 4 Months R30.0 - Dysuria Comprehensive [place]. Panel Fast 4 Months E78.00 - Pure hypercholesterolemia, unspecified TSH reflex Free T4 4 Months E78.00 - Pure hypercholesterolemia, unspecified Medications: Changed From lisinopril 30 mg PO DAILY 90 days 90 tabs 1RF To lisinopril 40 mg PO DAILY 90 tabs 1RF 90 days
--- OUTSIDE RECORDS SUMMARY | 2024-09-10 15:31 | XMS_ITS | Clinical Summary ---
Author Organization [facility] Address [address] [place] [address] Care Team Providers Care Toll Settlement Clerk Name Role Phone Unavailable Primary Care Provider Unavailabl e Source Comments PLEASE NOTE, if this patient is a minor, it may be UNLAWFUL to discuss sensitive information that is contained in these records (such as FAMILY PLANNING, MENTAL HEALTH or SUBSTANCE ABUSE) with the minor patient's parent or other person without the patient's specific authorization.[facility] Immunizations Immunization Administration Dates Next Due Moderna COVID-19 Vaccine, [...] Health Maintenance Due Date Last Done Comments Anxiety Screening 1960 Diabetes Screening 1959 Hepatitis C Screening 1959 Lipid Screening 1959 Tobacco Screening 1959 HIV Screening 1974 Hypertension Screening (#1) 1977 Imm-DTaP/Tdap/Td (1 - Tdap) 1978 CT Colonography 01/22/2004 Colonoscopy 01/22/2004 Colorectal Cancer Screening 01/22/2004 FIT/gFOBT 01/22/2004 Fecal DNA 01/22/2004 Flexible Sigmoidoscopy 01/22/2004 Imm-Pneumococcal 50+ (1 of 1 - PCV) 2009 Imm-Zoster, Recombinant (1 of 2) 2009 [id number] (3 - season) 2023 021, 08/04/2020 Imm-Influenza (#1) 2023 Abdominal Aortic Aneurysm Screening 01/22/2024 Falls Prevention 01/22/2024 Alcohol and Drug Screen 03/12/2024 Depression Annual Screen 03/12/2024 Insurance [facility]
--- OUTSIDE RECORDS SUMMARY | 2024-09-10 15:31 | XMS_ITS | Clinical Summary ---
Author Organization [facility] ity Address [address] [place] [address] Care Team Providers Care Application Assistant Name Role Phone Unavailable Primary Care Provider [...] Vaccine ( - 2023-2 5 season) 2023 Falls Risk Assessment 01/22/2024 Influenza Vaccine (Season Ended) 2024 RSV Immunization Adult Patie nts (1 - 1-dose 75+ series) 2034 HIB [...] age to complete this topic Meningococcal B Vaccine Aged Out No l onger eligible based on patient's age to complete [...]
== END 2024-09-10 16:29 | disposition home or self-care (01) ==
LOC: HO.HMCH 15:17
PROVIDERS: PCP Internal Medicine; Visit Provider Internal Medicine
DX: M79.631 Pain in right forearm (principal); E78.2 Mixed hyperlipidemia; Z68.33 Body mass index [BMI] 33.0-33.9, adult; E66.9 Obesity, unspecified; I10 Essential (primary) hypertension; R73.01 Impaired fasting glucose; R79.89 Other specified abnormal findings of blood chemistry; M47.812 Spondylosis without myelopathy or radiculopathy, cervical region; M51.362 Other intervertebral disc degeneration, lumbar region with discogenic back pain and lower extremity pain; M54.16 Radiculopathy, lumbar region; M75.102 Unspecified rotator cuff tear or rupture of left shoulder, not specified as traumatic; M12.812 Other specific arthropathies, not elsewhere classified, left shoulder

== ENCOUNTER → 2024-09-10 15:16 | Outpatient (BNVA) | payer OTHER, SELFPAY | PROVIDERS: PCP Internal Medicine; Visit Provider Internal Medicine | DX: I10 Essential (primary) hypertension (principal); M79.631 Pain in right forearm; E78.2 Mixed hyperlipidemia; R73.01 Impaired fasting glucose; R79.89 Other specified abnormal findings of blood chemistry; M47.812 Spondylosis without myelopathy or radiculopathy, cervical region; M51.362 Other intervertebral disc degeneration, lumbar region with discogenic back pain and lower extremity pain; M54.16 Radiculopathy, lumbar region; M75.102 Unspecified rotator cuff tear or rupture of left shoulder, not specified as traumatic; M12.812 Other specific arthropathies, not elsewhere classified, left shoulder; K21.9 Gastro-esophageal reflux disease without esophagitis; G47.33 Obstructive sleep apnea (adult) (pediatric); J30.9 Allergic rhinitis, unspecified; E55.9 Vitamin D deficiency, unspecified; F43.10 Post-traumatic stress disorder, unspecified; F17.210 Nicotine dependence, cigarettes, uncomplicated; E66.9 Obesity, unspecified; Z68.33 Body mass index [BMI] 33.0-33.9, adult | CPT/HCPCS: 96127 ==

== ENCOUNTER 2024-09-15 05:53 | Outpatient (REF) | payer OTHER, SELFPAY ==
--- OUTSIDE RECORDS SUMMARY | 2024-09-15 05:56 | XMS_ITS | Clinical Summary ---
Author Organization [facility] it Address [address] [place] [address] Care Team Providers Care Occ Ther Name Role Phone Unavailable Primary Care Provider [...] 2009 Zoster Vaccines (1 of 2) 2009 COVID-19 Vaccine ( - 2023-2 5 season) 2023 Influenza Vaccine (#1) 2024 RSV Immunization Adult Patie nts (1 [...]
[2024-09-15 06:11] LABS: MANUAL DIFF FLAG NO
[2024-09-15 07:29] LABS: Hematocrit 42.8 % (42.0-52.0); Hemoglobin 14.2 g/dl (14.0-18.0); Imm Gran Abs Auto 0.03 X10*3/uL (0.00-0.03); Imm Gran Pct Auto 0.3 % (0.0-0.4); Lymphocytes Absolute Auto 2.6 X10*3/uL (1.2-4.9); Mean Corpuscular HGB Conc 33.2 g/dl (31.0-36.0); Mean Corpuscular Hemoglobin 31.2 pg (27.0-33.0); Mean Corpuscular Volume 94.1 fL (80.0-98.0); NRBC Abs Auto 0.000 X10*3/uL (0.0-0.012); NRBC Pct Auto 0.0 /100WBC (0.0-0.2); Platelet Count 349 X10*3/uL (160-400); Red Blood Count 4.55 X10*6/uL (4.60-5.80); White Blood Count 9.8 X10*3/uL (4.8-10.8)
[2024-09-15 07:29] LABS: Appearance Urine Clear; Glucose Urine UA Negative (Negative); PH 5.5 (5.0-9.0); Specific Gravity - Urine 1.020 (1.005-1.025)
[2024-09-15 07:36] LABS: Hemoglobin A1C 145.4532 umol/L; Total Hemoglobin (HGBA1C) 3657.5472 umol/L
[2024-09-15 07:48] LABS: Alanine Aminotransferase 21 U/L (0-40); Albumin Level 4.4 g/dL (3.5-5.0); Alkaline Phosphatase 73 U/L (39-117); Anion Gap 13 (12-20); Aspartate Amino Transferase 29 U/L (5-37); Blood Urea Nitrogen 20 mg/dL (9-16); Calcium 8.8 mg/dL (8.4-10.2); Carbon Dioxide 22 mmol/L (22-29); Chloride 109 mmol/L (96-108); Cholesterol 136 mg/dL (<200); Estimated Glomerular Filt Rate > 60; HDL Cholesterol 30 mg/dL (>40); Potassium 4.2 mmol/L (3.3-5.1); Sodium 140 mmol/L (135-145); Total Protein 6.5 g/dL (6.5-8.0); Triglycerides 140 mg/dL (<150)
== END 2024-09-15 05:54 | disposition home or self-care (01) ==
LOC: HO.LAB 05:53
PROVIDERS: PCP Internal Medicine; Visit Provider Internal Medicine
DX: D64.9 Anemia, unspecified (principal); E78.00 Pure hypercholesterolemia, unspecified; R73.01 Impaired fasting glucose; R30.0 Dysuria
CPT/HCPCS: 36415; 80053; 80061; 81003; 83036; 85025

== ENCOUNTER 2024-11-24 08:26 | Outpatient (REF) | payer OTHER, SELFPAY ==
--- NOTE | ~2024-11-24 | XR_ITS ---
EXAMINATION: XR SHOULDER, LEFT CLINICAL INFORMATION: M25.512 - Pain in left shoulder COMPARISON: April 12, 2023 TECHNIQUE: AP external rotation, Grashey, scapular Y, and axillary views of the left shoulder. FINDINGS: No acute cortical disruption or malalignment. No lytic or blastic lesions. No soft tissue calcifications. Mild sclerosis and subchondral cyst formation in the greater tuberosity, left humerus. XR/XR shoulder LT min 2V IMPRESSION: Degenerative changes, greater tuberosity left humerus. Electronically signed by: Abelardo Garrett MD 11/24/2024 11:49 AM EDT
--- OUTSIDE RECORDS SUMMARY | 2024-11-25 09:57 | XMS_ITS | Clinical Summary ---
Author Organization [facility] Address [address] [place] [address] Care Team Providers Care Study Manager Name Role Phone Unavailable Primary Care Provider [...] Drug Screen 03/12/2024 Depression Annual Screen 03/12/2024 [id number] ( season) 2024 021, 08/04/2020 Imm-Influenza (#1) 2024 [facility]
--- OUTSIDE RECORDS SUMMARY | 2024-11-25 09:57 | XMS_ITS | Clinical Summary ---
Author Organization [facility] ity Address [address] [place] [address] Care Team Providers Care Sales Representative Rural Power Name Role Phone Unavailable Primary Care Provider [...]
== END 2024-11-24 08:27 | disposition home or self-care (01) ==
LOC: HO.HOSX 08:26
PROVIDERS: Visit Provider Physician Assistant
DX: M77.8 Other enthesopathies, not elsewhere classified (principal); M25.512 Pain in left shoulder
CPT/HCPCS: 20610; 73030; J0665; J1100; J2003

== ENCOUNTER 2024-11-24 11:34 | Outpatient (AMB) | payer OTHER, SELFPAY ==
--- NOTE | 2024-11-24 11:41 | MHC.OFFVIS ---
Vital Signs 11/24/24 11:51 Height 5 ft 4 in Weight 192 lb BMI 33.0 Intake Visit Reasons: Inj-Lt shoulder inj-last 02/13/24 Intake Note: june his pain retunre.d Allergies No Known Allergies (No Known Allergies*) Allergy (Verified 09/10/24 16:24) HPI HPI Inj-Lt shoulder inj-last 02/13/24: Details: 64-year-old gentleman returns to the office today for a follow-up left shoulder pain. His last injection in February of 2024 was significantly helpful. He states just recently over the last 2 months or so he developed increasing pain of the left shoulder. Limiting his ability to perform daily activities. [facility] Medical History Essential hypertension Obesity (BMI 30-39.9) Smoker Vitamin D deficiency Obstructive sleep apnea Allergic rhinitis GERD without esophagitis Cervical spondylosis Elevated LFTs Impaired fasting glucose Mixed hyperlipidemia Overweight (BMI 25.0-29.9) Lumbar degenerative disc disease Anxiety Surgical History Hx of colonoscopy (~04/2011) Family History Father Diabetes Mother Hypertension Social History Housing: Apartment Alcohol intake: never Patient Tobacco Use Status: Current everyday Tobacco user Tobacco use type: Cigarette Cigarettes Per Day: 15 e-Cigarette/Vaping Use: Never Used Second Hand Smoke Exposure: Yes service: No Current occupational status: employed 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 [employer] Cognitive needs: No Hearing needs: No Vision needs: No Review of Systems Const All systems reviewed & are unremarkable except as noted in HPI and below Physical Exam Vital Signs: BMI result Body Mass Index 33.0 Const General: cooperative, healthy appearing, comfortable, no acute distress, well developed and alert Orientation/consciousness: patient oriented x3 HEENT Head: Yes normal to inspection, Yes normocephalic and Yes atraumatic Eyes General: appearance normal, both eyes and all related structures Resp Effort & Inspection: normal respiratory effort and able to speak in complete sentences Cardio Rate: regular rate Peripheral pulses: Peripheral pulses 2+ throughout GI Palpation (GI): Soft to palpation Skin Lesions: no lesions Rashes: no rashes Neuro General: patient oriented x3 Extrem Other: Left shoulder normal to inspection. Tenderness over the bicipital groove and along the deltoid region of the shoulder. Forward flexion to 175, external rotation to 90, internal rotation to S1. 5/5 RTC strength with mild discomfort. Positive Jaimes. NVI. Office Procedures AMB Joint Injection/Aspiration Joint Injection/Aspiration Primary Site: left shoulder Prep: site was prepped using aseptic technique, ethochloride spray was applied and injection warnings given Injected: 40 mg of, with 3 mL of, 1% plain lidocaine, 0.25% bupivacaine, in the subcromial space and decadron Approach Used: posterolateral Procedure: The patient tolerated the procedure well and there was some relief with the local anesthesia Coding 83510 - Glenohumeral/Tronchanteric Bursa/Intraarticular Procedure code (CPT) selection complete Assessment & Plan Assessment & Plan (1) Subacromial tendonitis of left shoulder: Code(s): M77.8 - Other enthesopathies, not elsewhere classified Category: Medical Plan We discussed options today, which include steroid injection. The patient did consent to move forward with the left shoulder injection, which was tolerated well. I recommended rest, ice, and elevation and OTC anti-inflammatories as needed for discomfort. If symptoms persist or worsens over the next 6-8 weeks, patient will contact the office, otherwise follow-up as needed. Orders: Orders XR shoulder LT min 2V Today M25.512 - Pain in left shoulder Coding Level of Care Code Est Pt Level 3 (05941) Complex EM visit Add On G2211 Diagnoses Subacromial tendonitis of left shoulder M77.8 CPT Codes Coding - Joint 7: 90757 - Glenohumeral/Tronchanteric Bursa/Intraarticular ([id number])
[2024-11-24 11:51] VITALS: BMI 33.0
--- OUTSIDE RECORDS SUMMARY | 2024-11-24 15:57 | XMS_ITS | Clinical Summary ---
Author Organization [facility] ity Address [address] [place] [address] Care Team Providers Care Fish Machine Feeder Name Role Phone Unavailable Primary Care Provider [...] 2009 Zoster Vaccines (1 of 2) 2009 Depression Screening 03/12/2024 COVID-19 Vaccine (1 - 2023-2 5 season) 2024 Influenza Vaccine (#1) 2024 RSV Immunization Adult [...]
--- OUTSIDE RECORDS SUMMARY | 2024-11-24 15:57 | XMS_ITS | Clinical Summary ---
Author Organization [facility] Address [address] [place] [address] Care Team Providers Care Pediatric Assistant Name Role Phone Unavailable Primary Care [...] 2009 Imm-Zoster, Recombinant (1 of 2) 2009 Abdominal Aortic Aneurysm Screening 01/22/2024 Falls Prevention 01/22/2024 Alcohol and Drug Screen 03/12/2024 Depression Annual Screen 03/12/2024 [id number] ( season) 2024 021, 08/04/2020 Imm-Influenza (#1) 2024 Insurance [facility]
== END 2024-11-24 12:05 | disposition home or self-care (01) ==
LOC: HO.HOS 11:35
PROVIDERS: PCP Internal Medicine; Visit Provider Physician Assistant
DX: M77.8 Other enthesopathies, not elsewhere classified (principal)
CPT/HCPCS: 20610; 99213

== ENCOUNTER → 2024-11-24 11:37 | Outpatient (BNV) | payer OTHER, SELFPAY | PROVIDERS: Visit Provider Radiology Diagnostic Radiology | DX: M19.012 Primary osteoarthritis, left shoulder (principal) | CPT/HCPCS: 73030 ==

== ENCOUNTER 2025-01-19 06:03 | Outpatient (REF) | payer OTHER, SELFPAY ==
--- OUTSIDE RECORDS SUMMARY | 2025-01-19 06:08 | XMS_ITS | Clinical Summary ---
Author Organization [facility] Address [address] [place] [address] Care Team Providers Care Machine Clerical Verifier Name Role Phone Unavailable Primary Care Provider [...] Drug Screen 03/12/2024 Depression Annual Screen 03/12/2024 [id number] ( season) 2024 021, 08/04/2020 Imm-Influenza (#1) 2024 [facility]
--- OUTSIDE RECORDS SUMMARY | 2025-01-19 06:08 | XMS_ITS | Clinical Summary ---
Author Organization [facility] ity Address [address] [place] [address] Care Team Providers Care Interstate Bus Dispatcher Name Role Phone Unavailable Primary Care Provider [...]
[2025-01-19 06:25] LABS: MANUAL DIFF FLAG NO
[2025-01-19 07:35] LABS: Appearance Urine Clear; Glucose Urine UA Negative (Negative); PH 6.0 (5.0-9.0); Specific Gravity - Urine 1.015 (1.005-1.025)
[2025-01-19 08:02] LABS: Hematocrit 43.5 % (42.0-52.0); Hemoglobin 14.3 g/dl (14.0-18.0); Imm Gran Abs Auto 0.03 X10*3/uL (0.00-0.03); Imm Gran Pct Auto 0.3 % (0.0-0.4); Lymphocytes Absolute Auto 2.6 X10*3/uL (1.2-4.9); Mean Corpuscular HGB Conc 32.9 g/dl (31.0-36.0); Mean Corpuscular Hemoglobin 31.2 pg (27.0-33.0); Mean Corpuscular Volume 94.8 fL (80.0-98.0); NRBC Abs Auto 0.000 X10*3/uL (0.0-0.012); NRBC Pct Auto 0.0 /100WBC (0.0-0.2); Platelet Count 360 X10*3/uL (160-400); Red Blood Count 4.59 X10*6/uL (4.60-5.80); White Blood Count 10.1 X10*3/uL (4.8-10.8)
[2025-01-19 08:07] LABS: Alanine Aminotransferase 22 U/L (0-40); Albumin Level 4.6 g/dL (3.5-5.0); Alkaline Phosphatase 75 U/L (39-117); Anion Gap 10 (12-20); Aspartate Amino Transferase 23 U/L (5-37); Blood Urea Nitrogen 18 mg/dL (9-16); Calcium 8.9 mg/dL (8.4-10.2); Carbon Dioxide 26 mmol/L (22-29); Chloride 108 mmol/L (96-108); Cholesterol 143 mg/dL (<200); Estimated Glomerular Filt Rate > 60; HDL Cholesterol 34 mg/dL (>40); Potassium 4.2 mmol/L (3.3-5.1); Sodium 140 mmol/L (135-145); Total Protein 6.8 g/dL (6.5-8.0); Triglycerides 136 mg/dL (<150)
== END 2025-01-19 06:04 | disposition home or self-care (01) ==
LOC: HO.LAB 06:03
PROVIDERS: PCP Internal Medicine; Visit Provider Internal Medicine
DX: R30.0 Dysuria (principal); E78.2 Mixed hyperlipidemia; I10 Essential (primary) hypertension; R73.01 Impaired fasting glucose; R79.89 Other specified abnormal findings of blood chemistry; M47.812 Spondylosis without myelopathy or radiculopathy, cervical region; M51.369 Other intervertebral disc degeneration, lumbar region without mention of lumbar back pain or lower extremity pain; M54.16 Radiculopathy, lumbar region; M75.102 Unspecified rotator cuff tear or rupture of left shoulder, not specified as traumatic; M12.812 Other specific arthropathies, not elsewhere classified, left shoulder; K21.9 Gastro-esophageal reflux disease without esophagitis; G47.33 Obstructive sleep apnea (adult) (pediatric); J30.9 Allergic rhinitis, unspecified; E55.9 Vitamin D deficiency, unspecified; F43.10 Post-traumatic stress disorder, unspecified; D64.9 Anemia, unspecified; E78.00 Pure hypercholesterolemia, unspecified; F17.210 Nicotine dependence, cigarettes, uncomplicated; E66.9 Obesity, unspecified; Z68.32 Body mass index [BMI] 32.0-32.9, adult
CPT/HCPCS: 36415; 80053; 80061; 81003; 84443; 85025; 96127

== ENCOUNTER 2025-01-19 10:41 | Outpatient (AMB) | payer OTHER, SELFPAY ==
[2025-01-19 10:50] VITALS: BP 144/80; PULSE 72; O2SAT 97; BMI 32.8
--- NOTE | 2025-01-19 10:50 | A.OFFPC_ITS ---
Vital Signs 01/19/25 10:50 Height 5 ft 4 in Weight 191 lb 6 oz BMI 32.8 BP 144/80 H Blood Pressure Location Lt brachial Position Sitting Pulse 72 Pulse Source Pulse Oximeter Pulse Oximetry (%) 97 Oxygen Delivery Method Room Air Intake Visit Reasons: hyperlipidemia, HTN, OA Associate Dean Required: No Accompanied by: Self / Same As Patient Allergies No Known Allergies (No Known Allergies*) Allergy (Verified 01/19/25 11:23) Medication List - Last Reconciled 01/19/25 by Todd Moscoso MD atorvastatin 20 mg PO BEDTIME 90 days cholecalciferol (vitamin D3) 50 mcg PO DAILY 90 days ibuprofen 800 mg PO Q8H PRN lisinopril 40 mg PO DAILY 90 days Tobacco use date assessed: 01/19/25 Fall risk assessment: No Falls in past year Last assessed Fall Risk: 01/19/25 Dental Screening Dental Screen Date: 01/19/25 Did you have a dental visit in the last 12 months?: No Did you have a dental problem in the last 6 months where you did not have access to dental care?: No Was dental information given to patient?: No HPI hyperlipidemia, HTN, OA HPI Details Patient comes in today for his follow-up visit States that he currently feels okay He had cortisone injection into his left shoulder again from orthopedics about 2 months ago, with (+) relief of his shoulder pain He denies any headaches or dizziness Denies any chest pains, no increased shortness of breath No nausea/vomiting, no abdominal pain No change in bowel habits noted States that he still has chronic low back pain but his back pain has been mostly manageable Needs his Lisinopril Rx refilled He had his follow up labs done earlier this morning - to discuss his results [facility] Medical History Essential hypertension Obesity (BMI 30-39.9) Smoker Vitamin D deficiency Obstructive sleep apnea Allergic rhinitis GERD without esophagitis Cervical spondylosis Elevated LFTs Impaired fasting glucose Mixed hyperlipidemia Overweight (BMI 25.0-29.9) Lumbar degenerative disc disease Anxiety Surgical History Hx of colonoscopy (~04/2011) Family History Father Diabetes Mother Hypertension Social History Housing: Apartment Alcohol intake: never Patient Tobacco Use Status: Current everyday Tobacco user Tobacco use type: Cigarette Cigarettes Per Day: 15 e-Cigarette/Vaping Use: Never Used Second Hand Smoke Exposure: Yes service: No Current occupational status: employed 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 1. Little interest or pleasure in doing things: not at all 2. Feeling down, depressed, or hopeless: not at all 3. Trouble falling or staying asleep, or sleeping too much: not at all 4. Feeling tired or having little energy: not at all 5. Poor appetite or overeating: not at all 6. Feeling bad about yourself - or that you are a failure or have let yourself or your family down: not at all 7. Trouble concentrating on things, such as reading the newspaper or watching television: not at all 8. Moving or speaking so slowly that other people could have noticed. Or the opposite - being so fidgety or restless that you have been moving around a lot more than usual: not at all 9. Thoughts that you would be better off or of hurting yourself in some way: not at all Total score: 0 Depression Screening Interpretation: Negative Depression Screening Done: Yes 97438 - PHQ-9 Billing: Yes Source: Developed by Drs. Vincent Banks, Sherin Keller, Neptali Nuno and colleagues, with an educational devin from [employer]. Thrive Questionnaire Date Thrive assessed: 01/19/25 I am a: Patient What is your living situation today?: I have a steady place to live Within the past 12 months, did the food you bought not last and you didn't have the money to get more?: I choose not to answer this question Within the past 12 months, did you worry whether your food would run out before you got money to buy more?: Never true Do you have trouble paying for medicines?: No Do you have trouble getting transportation to medical appointments?: No Do you have trouble paying your heating and electricity bill?: No Do you have trouble taking care of your child, family member or friend?: No Do you have trouble with day-to-day activities such as bathing, preparing meals, shopping, managing finances, etc.?: No Are you currently unemployed and looking for a job?: No Are you interested in more education?: No Please select the resources that you would like help with: None Currently or been in a relationship where the following occur: No concerns reported THRIVE Score: 0 AUDIT C Alcohol Use Questionnaire (AUDIT-C) 1. How often do you have a drink containing alcohol?: Monthly or less 2. How many drinks containing alcohol do you have on a typical day when you are drinking?: 1 or 2 3. How often do you have six or more drinks on one occasion?: Never Total Score: 1 Score Reviewed/Action Taken: Yes QUENTIN-7 AMB Questionnaire QUENTIN-7 Date QUENTIN - 7 assessed: 01/19/25 Feeling nervous, anxious, or on edge: 0 = Not at all Not being able to stop or control worryin = Not at all Worrying too much about different things: 0 = Not at all Trouble relaxin = Not at all Being so restless that it is hard to sit still: 0 = Not at all Becoming easily annoyed or irritable: 0 = Not at all Feeling afraid as if something awful might happen: 0 = Not at all Total QUENTIN-7 score (0-4 normal; 5-9 mild; 10-14 moderate; 15-21 severe): 0 Source: Developed by Drs. Vincent Banks, Sherin Keller, Neptali Nuno and colleagues, with an educational devin from [employer]. Review of Systems Const Denies chills, Denies fatigue, Denies fever(s) and Denies headache(s) ENT Denies dysphagia, Denies dizziness, Denies otalgia, Denies headache(s), Reports neck pain, Denies odynophagia and Denies sore throat Card Denies chest pain, Denies palpitations and Reports dyspnea on exertion (occasional, mild) Resp Denies chest congestion, Denies cough and Reports dyspnea on exertion (occasional, mild) GI Denies abdominal pain, Denies constipation, Denies dysphagia, Denies heartburn, Denies diarrhea, Denies nausea, Denies odynophagia and Denies vomiting Denies dysuria, Denies nocturia and Denies urinary frequency Musc Reports back pain (over the lumbar spine - chronic), Reports arthralgias (left shoulder - improved with cortisone injections a couple of months ago), Reports neck pain and Reports radiating pain into limb (into the left lower extremity at times) Skin/Breast Denies rash Neuro Denies dizziness and Denies headache(s) Psych Reports anxiety Endo Denies fatigue and Denies palpitations Physical exam (Primary Care) Vital Signs: Last Vital Signs Pulse 72 01/19/25 10:50 BP 144/80 H 01/19/25 10:50 Pulse Ox 97 01/19/25 10:50 Oxygen Delivery Method Room Air 01/19/25 10:50 BMI result Body Mass Index 32.8 Tobacco/Smoking Status: Tobacco use Status Tobacco use date assessed 01/19/25 01/19/25 10:54 Patient Tobacco Use Status Current everyday Tobacco 01/19/25 10:54 Tobacco use type Cigarette 01/19/25 10:54 e-Cigarette/Vaping Use Never Used 01/19/25 10:54 PHQ-9: PHQ-9 Score PHQ-9: Total score 0 01/19/25 10:54 Depression Screening Interpretation: Negative Thrive Assessment: Date of Thrive Assessment Date Thrive assessed 01/19/25 01/19/25 10:54 Currently or been in a relationship where the following occur: No concerns reported Const General: no acute distress and alert HENMT Ears: TM's normal bilaterally and EAC's normal Throat: Yes posterior oropharynx normal and Yes tonsils normal (no TP congestion noted) Neck Neck: No lymphadenopathy and Yes tender Thyroid: Thyroid normal Resp Auscultation: clear to auscultation bilaterally, no rales and no wheezes Cardio Rate: regular rate Rhythm: regular rhythm Heart sounds: no murmurs GI Palpation (GI): Soft to palpation and nontender Auscultation: normal bowel sounds General: Yes no CVA tenderness Back/Spine/Pelvis Back: no CVA tenderness Cervical Spine: Cervical spine tenderness Thoracic/Lumbar Spine: lumbar spinal tenderness Skin Rashes: no rashes Extrem General: Yes no clubbing, cyanosis or edema Left upper extremity: shoulder/upper arm Details: tenderness Location: of the A- C joint (mild - improved with cortisone injection a couple of months ago) Results Reviewed Results Reviewed: Laboratory Tests 01/19/25 01/19/25 06:21 06:24 WBC 10.1 Hgb 14.3 Hct 43.5 Plt Count 360 Sodium 140 Potassium 4.2 Creatinine 0.80 Estimated GFR > 60 Fasting Glucose 101 H Calcium 8.9 AST 23 ALT 22 Triglycerides 136 Cholesterol 143 LDL Cholesterol, Calc 82 HDL Cholesterol 34 L TSH 1.69 Ur Specific [place] 1.015 Urine Protein Negative Urine Glucose (UA) Negative Urine Blood Negative Urine Nitrite Negative Ur Leukocyte Esterase Negative Coding Level of Care Code Est Pt Level 4 (47760) Diagnoses Mixed hyperlipidemia E78.2 Essential hypertension I10 Impaired fasting glucose R73.01 Elevated LFTs R79.89 Cervical spondylosis M47.812 Lumbar degenerative disc disease M51.36 Left lumbar radiculopathy M54.16 Left rotator cuff tear arthropathy M75.102; M12.812 GERD without esophagitis K21.9 Obstructive sleep apnea G47.33 Allergic rhinitis, unspecified seasonality, unspecified trigger J30.9 Allergic rhinitis trigger: unspecified Allergic rhinitis seasonality: unspecified Vitamin D deficiency E55.9 Post traumatic stress disorder (PTSD) F43.10 Smoker F17.200 Obesity (BMI 30-39.9) E66.9 Additional Codes PHQ-9 - 55855 - PHQ-9 Billing: Yes ([id number]) Assessment & Plan Assessment & Plan (1) Mixed hyperlipidemia: Code(s): E78.2 - Mixed hyperlipidemia Category: Medical Plan: Results of his labs done earlier today reviewed and discussed with patient - his cholesterol levels are well-controlled on his current Rx Reinforced low cholesterol diet Continue Atorvastatin 20 mg QD Will recheck his labs and fasting lipids again in 4 months for follow up (2) Essential hypertension: Code(s): I10 - Essential (primary) hypertension Category: Medical Plan: Reinforced low sodium diet - goal is systolic BP of 120 mm or less His blood pressure is still elevated today but I suspect that this may be due to anxiety and some component of white-coat syndrome His recent labs do not show any evidence of end-organ involvement, particularly with the kidneys Continue Lisinopril 40 mg QD - Rx refilled He is reminded to continue monitoring his BP regularly (3) Impaired fasting glucose: Code(s): R73.01 - Impaired fasting glucose Category: Medical Plan: His HgbA1c increased slightly to 5.7% on his previous labs done back in January 2024 (was at 5.4% a few months prior to that) His FBS was at 101 mg/dl on his recent labs Reinforced low calorie/low carb diet (4) Elevated LFTs: Code(s): R79.89 - Other specified abnormal findings of blood chemistry Category: Medical Plan: Improved; his LFTs have remained normal on his recent labs - these were most likely related to his weight and cholesterol level Will continue to monitor his LFTs regularly (5) Cervical spondylosis: Comment: Cervical spine x-rays done in early 2019 showed (+) mild multilevel ventral spondylosis at C3-C4, C4-C5 and C6-C7 Code(s): M47.812 - Spondylosis without myelopathy or radiculopathy, cervical region Category: Medical Plan: Patient states that his neck symptoms currently remain adequately controlled on his current Rx - he takes Ibuprofen or Aleve PRN (6) Lumbar degenerative disc disease: Code(s): M51.36 - Other intervertebral disc degeneration, lumbar region Category: Medical Plan: Reinforced activity and weight-lifting restrictions Repeat lumbar spine x-rays done a couple of years ago came out okay We sent him for a lumbar spine MRI for further evaluation at his last visit to further evaluate his radicular symptoms but the MRI was denied by his health insurance company Continue Ibuprofen 800 mg TID with food PRN and Gabapentin 100 mg Q HS (7) Left lumbar radiculopathy: Code(s): M54.16 - Radiculopathy, lumbar region Category: Medical Plan: We tried sending patient for an MRI of the lumbar spine for further evaluation a few months ago but this was denied by his health insurance company He has been advised that if his symptoms continue to progress, we will consider referring him to Neurosurgery for further evaluation although the neurosurgeons will usually require a recent MRI before they will schedule an appointment Have advised patient that we may need to refer him to physical therapy first before his insurance will agree to cover an MRI - we will reassess our options if his situation gets to that point (8) Left rotator cuff tear arthropathy: Comment: MRI of the left shoulder done on 12/24/2019 revealed (+) mild rotator cuff tendinosis (no tear), minor subacromial-subdeltoid bursitis, small lateral subacromial spur and mild osteoarthritis of the acromioclavicular joint, diffuse superior labral tear with possible extension through the posterior labrum; a nterior labral degeneration and mild glenohumeral arthrosis Code(s): M75.102 - Unspecified rotator cuff tear or rupture of left shoulder, not specified as traumatic; M12.812 - Other specific arthropathies, not elsewhere classified, left shoulder Category: Medical Plan: Patient states that his left shoulder symptoms improved a lot with cortisone injection (from orthopedics) and with physical therapy a couple of years ago and again with cortisone injection last February 2024 and more recently, a couple of months ago in November 2024 Follow up with orthopedics as scheduled or as needed (9) GERD without esophagitis: Code(s): K21.9 - Gastro-esophageal reflux disease without esophagitis Category: Medical Plan: Dietary restrictions reinforced (10) Obstructive sleep apnea: Code(s): G47.33 - Obstructive sleep apnea (adult) (pediatric) Category: Medical Plan: Patient states that he has not been using his CPAP device at all for a while and feels well without it so far Advised that this may be part of the reason for his occasional SAUCEDA; patient also is still smoking so that may also be a factor Have advised him to consider at least following up with sleep medicine again for reassessment (11) Allergic rhinitis: Code(s): J30.9 - Allergic rhinitis, unspecified Category: Medical Qualifiers: Allergic rhinitis trigger: unspecified Allergic rhinitis seasonality: unspecified Qualified Code(s): J30.9 - Allergic rhinitis, unspecified Plan: Continue Loratadine 10 mg QD PRN (12) Vitamin D deficiency: Code(s): E55.9 - Vitamin D deficiency, unspecified Category: Medical Plan: Continue Vitamin D3 2000 units QD (13) Post traumatic stress disorder (PTSD): Code(s): F43.10 - Post-traumatic stress disorder, unspecified Category: Medical Plan: Follow up with his therapist/psychiatrist as scheduled - is now seeing a therapist regularly and states that his sessions are helping Continue Hydroxyzine 25 mg TID PRN; he also used to take Clonidine PRN but has not had to take it in a few months now (14) Smoker: Code(s): F17.200 - Nicotine dependence, unspecified, uncomplicated Category: Social Hx Plan: Patient is counseled again on complete smoking cessation (15) Obesity (BMI 30-39.9): Code(s): E66.9 - Obesity, unspecified Category: Medical Plan: Reinforced diet/exercise as tolerated/lose weight Plan Follow-up in 4 months Orders: Orders Complete Blood Count Auto Diff 4 Months D64.9 - Anemia, unspecified UA CC w/rflx Micro + Cult 4 Months R30.0 - Dysuria Comprehensive [place]. Panel Fast 4 Months E78.00 - Pure hypercholesterolemia, unspecified Lipid Panel 4 Months E78.00 - Pure hypercholesterolemia, unspecified Hemoglobin A1c 4 Months R73.01 - Impaired fasting glucose Vitamin D 25-OH Total 4 Months E55.9 - Vitamin D deficiency, unspecified Medications: Refilled lisinopril 40 mg PO DAILY 90 tabs 1RF 90 days
== END 2025-01-19 11:39 | disposition home or self-care (01) ==
LOC: HO.HMCH 10:42
PROVIDERS: PCP Internal Medicine; Visit Provider Internal Medicine
DX: E78.2 Mixed hyperlipidemia (principal); I10 Essential (primary) hypertension; R73.01 Impaired fasting glucose; R79.89 Other specified abnormal findings of blood chemistry; M47.812 Spondylosis without myelopathy or radiculopathy, cervical region; M51.369 Other intervertebral disc degeneration, lumbar region without mention of lumbar back pain or lower extremity pain; M54.16 Radiculopathy, lumbar region; M75.102 Unspecified rotator cuff tear or rupture of left shoulder, not specified as traumatic; M12.812 Other specific arthropathies, not elsewhere classified, left shoulder; K21.9 Gastro-esophageal reflux disease without esophagitis; G47.33 Obstructive sleep apnea (adult) (pediatric); J30.9 Allergic rhinitis, unspecified